=== PATIENT | male | born 1940 | race Caucasian/White ===

== ENCOUNTER 2019-11-08 11:42 | Inpatient (IN) | payer MEDICARE, OTHER ==
[~2019-11-08] VITALS: Ht 177.8 cm; Wt 62.3 kg
[2019-11-08 12:25] LABS: BASOPHILS % 0.7 % (0.0-1.0); EOSINOPHILS % 0.7 % (0.0-6.0); HEMATOCRIT 37.5 % (38.2-49.6); HEMOGLOBIN 12.8 g/dL (14.0-18.0); LYMPHOCYTES # (AUTO) 0.9 (1.0-3.2); MEAN CORPUSCULAR HEMOGLOBIN 40.9 pg (28-32); MEAN CORPUSCULAR HGB CONC 34.1 g/dL (31-35); MEAN CORPUSCULAR VOLUME 119.8 fL (81-99); MONOCYTES # (AUTO) 0.6 (0.2-0.8); MONOCYTES % 14.3 % (4.4-11.3); NEUTROPHILS # (AUTO) 2.8 (2.1-6.9); NEUTROPHILS % 62.9 % (38.7-80.0); PLATELET COUNT 223 x10e3/uL (140-360); RED BLOOD COUNT 3.13 x10e6/uL (4.3-5.7); RED CELL DISTRIBUTION WIDTH 14.1 % (11.7-14.4)
[2019-11-08 12:33] LABS: INR 1.65; PROTHROMBIN TIME 20.5 seconds (11.9-14.5)
[2019-11-08 12:34] LABS: PARTIAL THROMBOPLASTIN TIME 57.1 seconds (23.8-35.5)
[2019-11-08 12:42] LABS: ALANINE AMINOTRANSFERASE 367 IU/L (0-55); ALBUMIN 3.2 g/dL (3.5-5.0); ALBUMIN/GLOBULIN RATIO 1.1 (0.8-2.0); ALKALINE PHOSPHATASE 300 IU/L (40-150); ANION GAP 13.4 mmol/L (8-16); BLOOD UREA NITROGEN 25 mg/dL (7-26); BUN/CREATININE RATIO 22 (6-25); CALCIUM 8.7 mg/dL (8.4-10.2); CARBON DIOXIDE 24 mmol/L (22-29); CHLORIDE 106 mmol/L (98-107); CREATINE KINASE 18 IU/L (30-200); CREATININE, SERUM 1.13 mg/dL (0.72-1.25); EST GLOMERULAR FILTRATION RATE > 60 ML/MIN (60-); GLUCOSE 94 mg/dL (74-118); POTASSIUM 3.4 mmol/L (3.5-5.1); SODIUM 140 mmol/L (136-145)
--- NOTE | 2019-11-08 14:57 | NUR ---
NOTIFIED LAB OF LIPASE ADD ON.
--- NOTE | 2019-11-08 15:51 | Emergency Department Note ---
History of Present Illnes History of Present Illness Chief Complaint: General Medicine Complaints History of Present Illness This is a 79 year old [place] sent for abnormal ast/alt levels. 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 Any updates have been documented here. Past Medical History Recent Fever: No Clinical Suspicion of Infectio: No New/Unexplained Change in Ment: No Past Medical History: CVA Other Medical History: RT PARAPALEGIC Social History Smoking Cessation: Unknown if ever smoked Counseling Performed: No Alcohol Use: None Any Illegal Drug Use: No TB Exposure/Symptoms: No Physically hurt or threatened: No Family History Family history of heart diseas: No Other Any Pre-Existing Lines (PICC,: No Review of Systems Review of Systems Constitutional: Reports no symptoms EENTM: Reports no symptoms Cardiovascular: Reports no symptoms Respiratory: Reports no symptoms Gastrointestinal: Reports no symptoms Genitourinary: Reports no symptoms Musculoskeletal: Reports no symptoms Integumentary: Reports no symptoms Neurological: Reports no symptoms Psychological: Reports no symptoms Endocrine: Reports no symptoms Hematological/Lymphatic: Reports no symptoms Physical Exam Related Data Allergies: Coded Allergies: No Known Allergies (Unverified , 11/08/19) Triage Vital Signs Vital Signs Date Time Temp Pulse Resp B/P (MAP) Pulse Ox O2 Delivery O2 Flow Rate FiO2 11/08/19 11:45 98.0 63 16 161/88 96 Room Air Vital signs reviewed: Yes Physical Exam CONSTITUTIONAL Constitutional: Present well-developed, Present well-nourished HENT HENT: Present normocephalic, Present atraumatic, Present oropharynx clear/moist, Present nose normal HENT L/R: Present left ext ear normal, Present right ext ear normal EYES Eyes: Reports PERRL, Reports conjunctivae normal, Reports scleral icterus (MILD) NECK Neck: Present ROM normal PULMONARY Pulmonary: Present effort normal, Present breath sounds normal CARDIOVASCULAR Cardiovascular: Present regular rhythm, Present heart sounds normal, Present capillary refill normal, Present normal rate GASTROINTESTINAL Abdominal: Present soft, Present nontender, Present bowel sounds normal; Absent tender, Absent left CVA tenderness, Absent right CVA tenderness GENITOURINARY Genitourinary: Present exam deferred SKIN Skin: Present warm, Present dry MUSCULOSKELETAL Musculoskeletal: Present ROM normal NEUROLOGICAL Neurological: Present alert, Present oriented x 3, Present no gross motor or sensory deficits PSYCHOLOGICAL Psychological: Present mood/affect normal, Present judgement normal Results Laboratory Result Diagram: 11/08/19 1215 11/08/19 1215 Laboratory Laboratory Tests Test 11/08/19 12:15 White Blood Count 4.40 x10e3/uL (4.8-10.8) Red Blood Count 3.13 x10e6/uL (4.3-5.7) Hemoglobin 12.8 g/dL (14.0-18.0) Hematocrit 37.5 % (38.2-49.6) Mean Corpuscular Volume 119.8 fL (81-99) Mean Corpuscular Hemoglobin 40.9 pg (28-32) Mean Corpuscular Hemoglobin Concent 34.1 g/dL (31-35) Red Cell Distribution Width 14.1 % (11.7-14.4) Platelet Count 223 x10e3/uL (140-360) Neutrophils (%) (Auto) 62.9 % (38.7-80.0) Lymphocytes (%) (Auto) 20.0 % (18.0-39.1) Monocytes (%) (Auto) 14.3 % (4.4-11.3) Eosinophils (%) (Auto) 0.7 % (0.0-6.0) Basophils (%) (Auto) 0.7 % (0.0-1.0) Neutrophils # (Auto) 2.8 (2.1-6.9) Lymphocytes # (Auto) 0.9 (1.0-3.2) Monocytes # (Auto) 0.6 (0.2-0.8) Eosinophils # (Auto) 0.0 (0.0-0.4) Basophils # (Auto) 0.0 (0.0-0.1) Absolute Immature Granulocyte (auto 0.06 x10e3/uL (0-0.1) Prothrombin Time 20.5 seconds (11.9-14.5) Prothromb Time International Ratio 1.65 Activated Partial Thromboplast Time 57.1 seconds (23.8-35.5) Sodium Level 140 mmol/L (136-145) Potassium Level 3.4 mmol/L (3.5-5.1) Chloride Level 106 mmol/L (98-107) Carbon Dioxide Level 24 mmol/L (22-29) Anion Gap 13.4 mmol/L (8-16) Blood Urea Nitrogen 25 mg/dL (7-26) Creatinine 1.13 mg/dL (0.72-1.25) Estimat Glomerular Filtration Rate > 60 ML/MIN (60-) BUN/Creatinine Ratio 22 (6-25) Glucose Level 94 mg/dL (74-118) Calcium Level 8.7 mg/dL (8.4-10.2) Total Bilirubin 1.8 mg/dL (0.2-1.2) Aspartate Amino Transf (AST/SGOT) 236 IU/L (5-34) Alanine Aminotransferase (ALT/SGPT) 367 IU/L (0-55) Alkaline Phosphatase 300 IU/L (40-150) Creatine Kinase 18 IU/L (30-200) Creatine Kinase MB 0.80 ng/mL (0-5.0) Troponin I < 0.001 ng/mL (0-0.300) Total Protein 6.0 g/dL (6.5-8.1) Albumin 3.2 g/dL (3.5-5.0) Globulin 2.8 g/dL (2.3-3.5) Albumin/Globulin Ratio 1.1 (0.8-2.0) Lipase 12 U/L (8-78) Lab results reviewed: Yes Imaging Imaging results reviewed: Yes Assessment & Plan Medical Decision Making MDM CHECK CBC, CHEM, LIPASE, CT ABD/PELVIS - EVAL FOR ELEV LFT'S, CHOLECYSTITIS, HEPATITIS Reassessment Reassessment INCR LFT'S, CT SHOWS CHOLECYSTITIS AND ? COLITIS - ZOSYN/FLAGYL, ADMIT DR FUENTES, I ALSO SPOKE WITH DR SOTO Assessment & Plan Final Impression: (1) Cholecystitis Depart Disposition: ADMITTED Last Vital Signs Date Time Temp Pulse Resp B/P (MAP) Pulse Ox O2 Delivery O2 Flow Rate FiO2 11/08/19 14:59 98.7 56 16 170/69 100 Room Air SWEET,LAIRD A MD Nov 08, 2019 15:51
[2019-11-08] MEDS ORDERED: SODIUM CHLORIDE 0.9% 50ML 50 ML ONE (16:07)
[2019-11-08] MEDS ORDERED: IOPAMIDOL 370 MG/ML 200 ML INFUS..BTL INJ ONE (16:07)
--- NOTE | 2019-11-08 17:34 | Diagnostic Imaging Report ---
EXAM: CT Abdomen and Pelvis WITH contrast INDICATION: COMPARISON: None. TECHNIQUE: Abdomen and pelvis were scanned utilizing a multidetector helical scanner from the lung base to the pubic symphysis after administration of IV contrast. Coronal and sagittal reformations were obtained. Routine protocol was performed. Scan was performed when during portal venous phase. IV CONTRAST: 100 mL of Isovue 370 ORAL CONTRAST: None COMPLICATIONS: None RADIATION DOSE: Total DLP: 479.36 mGy*cm Estimated effective dose: (DLP x 0.015 x size factor) mSv CTDIvol has been reviewed. It is below the limits set by the Radiation Protocol Committee (RPC). Dose modulation, iterative reconstruction, and/or weight based adjustment of the mA/kV was utilized to reduce the radiation dose to as low as reasonably achievable. FINDINGS: LINES and TUBES: None. LOWER THORAX: Bibasilar atelectasis. HEPATOBILIARY: No focal hepatic lesions. No biliary ductal dilation. GALLBLADDER: There are multiple gallstones within the gallbladder. There is gallbladder wall thickening and enhancement with pericholecystic fluid. SPLEEN: No splenomegaly. PANCREAS: No focal masses or ductal dilatation. ADRENALS: No adrenal nodules KIDNEYS/URETERS: The bilateral kidneys appear atrophic. There is an indeterminate hyperdense exophytic lesion in the superior pole of the left kidney (series 2 image 38; series 301 image 53) which measures about 45 Hounsfield units. There are multiple bilateral renal cysts the largest in the left kidney measures approximately 4.8 cm. Additional subcentimeter hypodense lesions throughout both kidneys are too small to characterize by CT most likely represent smaller cysts. No renal stone or hydronephrosis bilaterally. GI TRACT: There is rectosigmoid colonic wall thickening with mild peripheral fat stranding. No abnormal distention, wall thickening, or evidence of bowel obstruction. Appendix is normal. PELVIC ORGANS/BLADDER: The urinary bladder is decompressed limiting optimal assessment. However no gross abnormality. The prostate gland is mildly enlarged measuring approximately 5.1 x 4.4 cm. LYMPH NODES: No lymphadenopathy. VESSELS: The abdominal aorta and its major abdomen and pelvic branches have normal enhancement with moderate atherosclerotic calcification. PERITONEUM / RETROPERITONEUM: No free air or fluid. BONES: Multilevel degenerative changes of the spine with no suspicious osteolytic or osteoblastic lesions. SOFT TISSUES: Unremarkable. IMPRESSION: 1. Multiple gallstones with gallbladder wall thickening, enhancement and pericholecystic fluid. Confirmation of findings compatible with cholecystitis. Recommend dedicated right upper quadrant ultrasound for complete assessment. 2. Indeterminate hyperdense exophytic lesion in the superior pole of the left kidney. Recommend nonemergent CT or MRI of the abdomen/pelvis (renal mass protocol) to exclude small chance of malignancy. 3. Rectosigmoid colonic wall thickening with mild peripheral fat stranding which can be suggestive of colitis. 4. Mild prostatomegaly. Signed by: Omar Hernandez MD on 11/08/2019 5:31 PM
[2019-11-08] MEDS ORDERED: HYDROCODONE/APAP 7.5MG-325MG 1 EA TAB PO NR (18:00)
[2019-11-08] MEDS ORDERED: ONDANSETRON HCL INJ 2MG/ML 2ML 2 MG/ML VIAL IV PRN (18:00)
[2019-11-08] MEDS ORDERED: MORPHINE SULFATE 2 MG/ML SYR 1ML IV PRN (18:00)
--- OUTSIDE RECORDS SUMMARY | 2019-11-08 18:07 | XMS REPORT | Continuity of Care Document ---
Author Author [facility] t Organization [facility] Address 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 Allergies, Adverse Reactions, Alerts Allergy Name Allergy Type Status Severity Reaction(s) Onset Date Inacti ve Date Treating Clinician Comments Source No Known Allergies DA Active U 2018-12-05 00:00:00 [facility] No Known Allergies DA Active U 2017-03-21 00:00:00 [facility] Medications This patient has no known medications. Procedures This patient has no known procedures. Results Test Description Test Time Test Comments Results Result Comments Source CT ABDOMEN/PELVIS W 2019-11-08 17:16:00 [place] [address] Patient Name: Emili GODFREY MR #: [id number] : 1940 Age/Sex: 79/M Req #: [id number] Adm Physician: Ordered by: ROBB CLIFFORD MD Report #: [id number] Location: ER Room/Bed: Procedure: [id number] CT/CT ABDOMEN/PELVIS W Exam Date: 11/08/19 Exam Time: 1623 REPORT STATUS: Signed EXAM: CT Abdomen and Pelvis WITH contrast INDICATION: COMPARISON: None. TECHNIQUE: Abdomen and pelvis were scanned utilizing a multidetector helical scanner from the lung base to the pubic symphysis after administration of IV contrast. Coronal and sagittal reformations were obtained. Routine protocol was performed. Scan was performed when during portal venous phase. IV CONTRAST: 100 mL of Isovue 370 ORAL CONTRAST: None COMPLICATIONS: None RADIATION DOSE: Total DLP: 479.36 mGy*cm Estimated effective dose: (DLP x 0.015 x size factor) mSv CTDIvol has been reviewed. It is below the limits set by the Radiation Protocol Committee (RPC). Dose modulation, iterative reconstruction, and/or weight based adjustment of the mA/kV was utilized to reduce the radiation dose to as low as reasonably achievable. FINDINGS: LINES and TUBES: None. LOWER THORAX: Bibasilar atelectasis. HEPATOBILIARY: No focal hepatic lesions. No biliary ductal dilation. GALLBLADDER: There are multiple gallstones within the gallbladder. There is gallbladder wall thickening and enhancement with pericholecystic fluid. SPLEEN: No splenomegaly. PANCREAS: No focal masses or ductal dilatation. ADRENALS: No adrenal nodules KIDNEYS/URETERS: The bilateral kidneys appear atrophic. There is an indeterminate hyperdense exophytic lesion in the superior pole of the left kidney (series 2 image 38; series 301 image 53) which measures about 45 Hounsfield units. There are multiple bilateral renal cysts the largest in the left kidney measures approximately 4.8 cm. Additional subcentimeter hypodense lesions throughout both kidneys are too small to characterize by CT most likely represent smaller cysts. No renal stone or hydronephrosis bilaterally. GI TRACT: There is rectosigmoid colonic wall thickening with mild peripheral fat stranding. No abnormal distention, wall thickening, or evidence of bowel obstruction. Appendix is normal. PELVIC ORGANS/BLADDER: The urinary bladder is decompressed limiting optimal assessment. However no gross abnormality. The prostate gland is mildly enlarged measuring approximately 5.1 x 4.4 cm. LYMPH NODES: No lymphadenopathy. VESSELS: The abdominal aorta and its major abdomen and pelvic branches have normal enhancement with moderate atherosclerotic calcification. PERITONEUM / RETROPERITONEUM: No free air or fluid. BONES: Multilevel degenerative changes of the spine with no suspicious osteolytic or osteoblastic lesions. SOFT TISSUES: Unremarkable. IMPRESSION: 1. Multiple gallstones with gallbladder wall thickening, enhancement and pericholecystic fluid. Confirmation of findings compatible with cholecystitis. Recommend dedicated right upper quadrant ultrasound for complete assessment. 2. Indeterminate hyperdense exophytic lesion in the superior pole of the left kidney. Recommend nonemergent CT or MRI of the abdomen/pelvis (renal mass pro tocol) to exclude small chance of malignancy. 3. Rectosigmoid colonic wall thickening with mild peripheral fat stranding which can be suggestive of colitis. 4. Mild prostatomegaly. Signed by: Sean Chavez MD on 11/08/2019 5:31 PM Dictated By: SEAN CHAVEZ MD 30 Transcribed By: PATRIA on 11/08/191730 COPY TO: ROBB CLIFFORD MD CBC W/MANUAL DIFF 2018-12-06 13:45:00 Test Item WHITE BLOOD CELL (test code = WBC) 34.3 K/mm3 4.5-12.5 H RESULT VERIFIED BY REPEAT ANALYSIS RED BLOOD CELL (test code = RBC) 7.69 mill/mm3 4.0-5.8 H HEMOGLOBIN (test code = HGB) 17.7 gram/dL 13.0-17.5 H HEMATOCRIT (test code = HCT) 59.1 % 42.0-52.0 H MEAN CELL VOLUME (test code = MCV) 76.9 fL 80-98 L MEAN CELL HGB (test code = MCH) 23.0 picogram 27.0-33.0 L MEAN CELL HGB CONCETRATION (test code = MCHC) 29.9 gram/dL 33.0-36. 0 L RED CELL DISTRIBUTION WIDTH (test code = RDW) 19.9 % 11.6-16. 2 H RED CELL DISTRIBUTION WIDTH SD (test code = RDW-SD) 47.4 fL 37 .0-51.0 N PLATELET COUNT (test code = PLT) 1251 K/mm3 150-450 H RESULT VERIFIED BY REPEAT ANALYSIS Has "Path Review" been performed on patient's currentadmission? If not, please order "Path Review" for the followingcriteria:1/ WBC count over 40,000/mm3 or below 2,000/mm32/ Platelet counts over 1,000,000/mm3, or below 10,000/mm3, or with abnormal morphology.3/ Abnormal red cell morphology or inclusions which are severe (> 3+) , widespread, or difficult to classify.4/ Abnormal white blood cell morphology: Blasts present in peripheral blood of any patient as a new finding. Abnormal cells suspected of being blasts. Patients with large numbers of immature cells in peripheral blood. Unusual cells or cells not easily classified in peripheral blood.5/ Any smear in which the technologist is uncertain of the classification or the disease. MEAN PLATELET VOLUME (test code = MPV) 8.8 fL 6.7-11.0 N IMMATURE GRANULOCYTE % (test code = IG%) 2.3 % 0.0-5.0 N NUCLEATED RBC % (test code = NRBC%) 0.1 % 0-0 H NEUTROPHIL # (test code = NT#) 29.72 K/mm3 1.8-7.7 H IMMATURE GRANULOCYTE # (test code = IG#) 0.79 x10 3/uL 0-0.03 H LYMPHOCYTE # (test code = LY#) 1.77 K/mm3 1.0-5.0 N MONOCYTE # (test code = MO#) 1.20 K/mm3 0-0.8 H EOSINOPHIL # (test code = EO#) 0.65 K/mm3 0.0-0.5 H BASOPHIL # (test code = BA#) 0.21 K/mm3 0.0-0.2 H NUCLEATED RBC # (test code = NRBC#) 0.04 K/mm3 0.0-0.1 N MANUAL DIFF REQUIRED (test code = MDIFF) YES STAIN ACCEPTABILITY (test code = STN ACCEPTABLE) STAIN ACCEPTABLE TOTAL CELLS COUNTED (test code = TCC) 120 #CELLS SEGMENTED NEUTROPHILS (test code = SEG) 86.7 % 39-69 H BAND NEUTROPHIL (test code = BAND) 0 % 0-10 N LYMPHOCYTE (test code = LYMPH) 2.5 % 25-55 L REACTIVE LYMPH (test code = RELYMPH) 0 % MONOCYTE (test code = MON) 10.0 % 0-10 N EOSINOPHIL (test code = EOS) 0.8 % 0.0-5.0 N BASOPHIL (test code = BASO) 0 % 0-1.0 N METAMYELOCYTE (test code = META) 0 % 0-0 N MYELOCYTE (test code = MYELO) 0 % 0.0-0.0 N PROMYELOCYTE (test code = PROM) 0 % 0-0 N POLYCHROMASIA (test code = POLC) 1+ POIKILOCYTOSIS (test code = POIK) 1+ ANISOCYTOSIS (test code = ANISO) 1+ MICROCYTOSIS (test code = MICR) 1+ PLATELET ESTIMATE (test code = PLTEST) INCREASED PLATELET MORPHOLOGY (test code = PLTMORPH) SIZE VARIABLE IMMATURE FORMS (test code = IMMAT) 0 % 0-0 N PATHOLOGISTS [id number] 13:45:00* Test Item Value Reference Range Interpretation Comments PATHOLOGISTS FINDINGS (test code = PATH) PATH NOTES Reviewed by Pathologist,SRUTHI CARRILLO M.D.12/06/18The patient has a previous diagnosis from a bone marrowbiopsy ( dec 2013 S- [id number]) of markedly hypercellularmarrow with 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 LACTIC [id number] 18:36:00* Test Item Value Reference Range Interpretation Comments LACTIC ACID (test code = LACT) 1.8 mmol/L 0.4-1.9 N - XR CHEST 1 [id number] 17:59:00 FAX: Deidre Madrigal MD [phone] [place]: B St: REG Name: Emili RAMÍREZ [facility] : [birth year] Age/S: 78/M [address] [facility] Unit #: [id number] Loc: [place] [address] Phys: Deidre Madrigal MD Acct: [id number] Dis Date: Status: REG ER PHONE #: [phone] Exam Date: 12/05/2018 1740 FAX #: [phone] Reason: COUGH EXAMS: CPT CODE: [id number] XR CHEST 1 V [id number] REASON FOR EXAM: COUGH Exam Order Date: 12/05/2018 5:27 PM Ordering M.D.: Deidre Madrigal MD PROCEDURE: - XR CHEST 1 V COMPARISON: Frontal chest x-ray August 11, 2017 FINDINGS: The lungs are clear other than mild subsegmental atelectasis in the left lung base. T here is no pleural effusion or pneumothorax. Pulmonary vascularity is with in normal limits. Cardiomediastinal silhouette is normal in size f or technique. The mediastinal contours are within normal limits. Degenerative changes are present in the spine. The visualized upper abdomen is within normal limits. IMPRESSION: No acute cardiopulmonary process. at 1759 Reported and signed by: Carlo Kaplan MD CC: Deidre Madrigal MD Technologist: Dixie Dempsey(R); Emily Dempsey(R) Trn scrd Date/Time/By: 12/05/2018 (041) : By: [email or web address] Orig Print D/T: S : 12/05/2018 (326) PAGE 1 Signed Report CBC W/MANUAL [id number] 16:36:00* Test Item Value Reference Range Interpretation Comments WHITE BLOOD CELL (test code = WBC) 34.3 K/mm3 4.5-12.5 H RESULT VERIFIED BY REPEAT ANALYSIS RED BLOOD CELL (test code = RBC) 7.69 mill/mm3 4.0-5.8 H HEMOGLOBIN (test code = HGB) 17.7 gram/dL 13.0-17.5 H HEMATOCRIT (test code = HCT) 59.1 % 42.0-52.0 H MEAN CELL VOLUME (test code = MCV) 76.9 fL 80-98 L MEAN CELL HGB (test code = MCH) 23.0 picogram 27.0-33.0 L MEAN CELL HGB CONCETRATION (test code = MCHC) 29.9 gram/dL 33.0-36. 0 L RED CELL DISTRIBUTION WIDTH (test code = RDW) 19.9 % 11.6-16. 2 H RED CELL DISTRIBUTION WIDTH SD (test code = RDW-SD) 47.4 fL 37 .0-51.0 N PLATELET COUNT (test code = PLT) 1251 K/mm3 150-450 H RESULT VERIFIED BY REPEAT ANALYSIS Has "Path Review" been performed on patient's currentadmission? If not, please order "Path Review" for the followingcriteria:1/ WBC count over 40,000/mm3 or below 2,000/mm32/ Platelet counts over 1,000,000/mm3, or below 10,000/mm3, or with abnormal morphology.3/ Abnormal red cell morphology or inclusions which are severe (> 3+) , widespread, or difficult to classify.4/ Abnormal white blood cell morphology: Blasts present in peripheral blood of any patient as a new finding. Abnormal cells suspected of being blasts. Patients with large numbers of immature cells in peripheral blood. Unusual cells or cells not easily classified in peripheral blood.5/ Any smear in which the technologist is uncertain of the classification or the disease. MEAN PLATELET VOLUME (test code = MPV) 8.8 fL 6.7-11.0 N IMMATURE GRANULOCYTE % (test code = IG%) 2.3 % 0.0-5.0 N NUCLEATED RBC % (test code = NRBC%) 0.1 % 0-0 H NEUTROPHIL # (test code = NT#) 29.72 K/mm3 1.8-7.7 H IMMATURE GRANULOCYTE # (test code = IG#) 0.79 x10 3/uL 0-0.03 H LYMPHOCYTE # (test code = LY#) 1.77 K/mm3 1.0-5.0 N MONOCYTE # (test code = MO#) 1.20 K/mm3 0-0.8 H EOSINOPHIL # (test code = EO#) 0.65 K/mm3 0.0-0.5 H BASOPHIL # (test code = BA#) 0.21 K/mm3 0.0-0.2 H NUCLEATED RBC # (test code = NRBC#) 0.04 K/mm3 0.0-0.1 N MANUAL DIFF REQUIRED (test code = MDIFF) YES STAIN ACCEPTABILITY (test code = STN ACCEPTABLE) STAIN ACCEPTABLE TOTAL CELLS COUNTED (test code = TCC) 120 #CELLS SEGMENTED NEUTROPHILS (test code = SEG) 86.7 % 39-69 H BAND NEUTROPHIL (test code = BAND) 0 % 0-10 N LYMPHOCYTE (test code = LYMPH) 2.5 % 25-55 L REACTIVE LYMPH (test code = RELYMPH) 0 % MONOCYTE (test code = MON) 10.0 % 0-10 N EOSINOPHIL (test code = EOS) 0.8 % 0.0-5.0 N BASOPHIL (test code = BASO) 0 % 0-1.0 N METAMYELOCYTE (test code = META) 0 % 0-0 N MYELOCYTE (test code = MYELO) 0 % 0.0-0.0 N PROMYELOCYTE (test code = PROM) 0 % 0-0 N POLYCHROMASIA (test code = POLC) 1+ POIKILOCYTOSIS (test code = POIK) 1+ ANISOCYTOSIS (test code = ANISO) 1+ MICROCYTOSIS (test code = MICR) 1+ PLATELET ESTIMATE (test code = PLTEST) INCREASED PLATELET MORPHOLOGY (test code = PLTMORPH) SIZE VARIABLE IMMATURE FORMS (test code = IMMAT) 0 % 0-0 N PATHOLOGISTS [id number] 16:36:00* Test Item Value Reference Range Interpretation Comments PATHOLOGISTS FINDINGS (test code = PATH) PATH NOTES PROTHROMBIN [id number] 16:15:00* Test Item Value Reference Range Interpretation Comments PROTHROMBIN TIME PATIENT (test code = PTP) 14.4 seconds 9.0-14.0 H INTERNATIONAL NORMAL RATIO (test code = INR) 1.2 0.8-1.2 N The therapeutic range for oral anticoagulant therapy formost indications is an international normalized ratio (INR)of between 2.0 and 3.0. The recommended therapeutic INRrange for various clinical situations is listed below: Clinical Situation INR range Pulmonary e mbolism treatment (2.0-3.0)Venous thrombosis treatmentVenous thrombosis prophylaxis (high risk surgery)Prevention of systemic embolism from: Acute myocardial infarction Valvular heart disease Atrial fibrillation Mechanical prosthetic heart valves (2.5-3.5) IS PATIENT ON ANTICOAGULANTS? NTHROMBOPLASTIN TIME [id number] 16:15:00* Test Item Value Reference Range Interpretation Comments THROMBOPLASTIN TIME PARTIAL (test code = PTT) 59.6 seconds 25.0-36. 5 H IS PATIENT ON ANTICOAGULANTS? NBASIC METABOLIC [id number] 15:55:00* Test Item Value Reference Range Interpretation Comments SODIUM (test code = NA) 140 mmol/L 136-145 N POTASSIUM (test code = K) 4.5 mmol/L 3.5-5.1 N CHLORIDE (test code = CL) 108.0 mmol/L 98-107 H CARBON DIOXIDE (test code = CO2) 23.0 mmol/L 21-32 N ANION GAP (test code = GAP) 13.5 10-20 N GLUCOSE (test code = GLU) 99 mg/dL 74-106 N BLOOD UREA NITROGEN (test code = BUN) 17 mg/dL 7-18 N GLOMERULAR FILTRATION RATE (test code = GFR) > 60 mL/min >=60 Estimated GFR by using Modified MDRD formula.Chronic kidney disease is defined as either kidney damageor GFR <60 mL/min/1.73 m2 for >3 months. CREATININE (test code = CREAT) 1.00 mg/dL 0.7-1.3 N BUN/CREATININE RATIO (test code = BUN/CREA) 17.0 10-20 N CALCIUM (test code = CA) 9.3 mg/dL 8.5-10.1 N BASIC METABOLIC [id number] 15:52:00* Test Item Value Reference Range Interpretation Comments SODIUM (test code = NA) 140 mmol/L 136-145 N POTASSIUM (test code = K) 4.5 mmol/L 3.5-5.1 N CHLORIDE (test code = CL) 108.0 mmol/L 98-107 H CARBON DIOXIDE (test code = CO2) mmol/L 21-32 ANION GAP (test code = GAP) 10-20 GLUCOSE (test code = GLU) mg/dL 74-106 BLOOD UREA NITROGEN (test code = BUN) mg/dL 7-18 GLOMERULAR FILTRATION RATE (test code = GFR) mL/min >=60 CREATININE (test code = CREAT) mg/dL 0.7-1.3 BUN/CREATININE RATIO (test code = BUN/CREA) 10-20 CALCIUM (test code = CA) mg/dL 8.5-10.1 CBC W/MANUAL [id number] 15:50:00* Test Item Value Reference Range Interpretation Comments WHITE BLOOD CELL (test code = WBC) 34.3 K/mm3 4.5-12.5 H RESULT VERIFIED BY REPEAT ANALYSIS RED BLOOD CELL (test code = RBC) 7.69 mill/mm3 4.0-5.8 H HEMOGLOBIN (test code = HGB) 17.7 gram/dL 13.0-17.5 H HEMATOCRIT (test code = HCT) 59.1 % 42.0-52.0 H MEAN CELL VOLUME (test code = MCV) 76.9 fL 80-98 L MEAN CELL HGB (test code = MCH) 23.0 picogram 27.0-33.0 L MEAN CELL HGB CONCETRATION (test code = MCHC) 29.9 gram/dL 33.0-36. 0 L RED CELL DISTRIBUTION WIDTH (test code = RDW) 19.9 % 11.6-16. 2 H RED CELL DISTRIBUTION WIDTH SD (test code = RDW-SD) 47.4 fL 37 .0-51.0 N PLATELET COUNT (test code = PLT) 1251 K/mm3 150-450 H RESULT VERIFIED BY REPEAT ANALYSIS Has "Path Review" been performed on patient's currentadmission? If not, please order "Path Review" for the followingcriteria:1/ WBC count over 40,000/mm3 or below 2,000/mm32/ Platelet counts over 1,000,000/mm3, or below 10,000/mm3, or with abnormal morphology.3/ Abnormal red cell morphology or inclusions which are severe (> 3+) , widespread, or difficult to classify.4/ Abnormal white blood cell morphology: Blasts present in peripheral blood of any patient as a new finding. Abnormal cells suspected of being blasts. Patients with large numbers of immature cells in peripheral blood. Unusual cells or cells not easily classified in peripheral blood.5/ Any smear in which the technologist is uncertain of the classification or the disease. MEAN PLATELET VOLUME (test code = MPV) 8.8 fL 6.7-11.0 N IMMATURE GRANULOCYTE % (test code = IG%) 2.3 % 0.0-5.0 N NUCLEATED RBC % (test code = NRBC%) 0.1 % 0-0 H NEUTROPHIL # (test code = NT#) 29.72 K/mm3 1.8-7.7 H IMMATURE GRANULOCYTE # (test code = IG#) 0.79 x10 3/uL 0-0.03 H LYMPHOCYTE # (test code = LY#) 1.77 K/mm3 1.0-5.0 N MONOCYTE # (test code = MO#) 1.20 K/mm3 0-0.8 H EOSINOPHIL # (test code = EO#) 0.65 K/mm3 0.0-0.5 H BASOPHIL # (test code = BA#) 0.21 K/mm3 0.0-0.2 H NUCLEATED RBC # (test code = NRBC#) 0.04 K/mm3 0.0-0.1 N MANUAL DIFF REQUIRED (test code = MDIFF) YES STAIN ACCEPTABILITY (test code = STN ACCEPTABLE) TOTAL CELLS COUNTED (test code = TCC) #CELLS SEGMENTED NEUTROPHILS (test code = SEG) % 39-69 LYMPHOCYTE (test code = LYMPH) % 25-55 MONOCYTE (test code = MON) % 0-10 EOSINOPHIL (test code = EOS) % 0.0-5.0 CABOT RINGS (test code = CAB) MORPHOLOGY COMMENT (test code = MOC) PLATELET ESTIMATE (test code = PLTEST) PLATELET MORPHOLOGY (test code = PLTMORPH) CBC W/MANUAL [id number] 15:50:00* Test Item Value Reference Range Interpretation Comments WHITE BLOOD CELL (test code = WBC) 34.3 K/mm3 4.5-12.5 H RESULT VERIFIED BY REPEAT ANALYSIS RED BLOOD CELL (test code = RBC) 7.69 mill/mm3 4.0-5.8 H HEMOGLOBIN (test code = HGB) 17.7 gram/dL 13.0-17.5 H HEMATOCRIT (test code = HCT) 59.1 % 42.0-52.0 H MEAN CELL VOLUME (test code = MCV) 76.9 fL 80-98 L MEAN CELL HGB (test code = MCH) 23.0 picogram 27.0-33.0 L MEAN CELL HGB CONCETRATION (test code = MCHC) 29.9 gram/dL 33.0-36. 0 L RED CELL DISTRIBUTION WIDTH (test code = RDW) 19.9 % 11.6-16. 2 H RED CELL DISTRIBUTION WIDTH SD (test code = RDW-SD) 47.4 fL 37 .0-51.0 N PLATELET COUNT (test code = PLT) 1251 K/mm3 150-450 H RESULT VERIFIED BY REPEAT ANALYSIS Has "Path Review" been performed on patient's currentadmission? If not, please order "Path Review" for the followingcriteria:1/ WBC count over 40,000/mm3 or below 2,000/mm32/ Platelet counts over 1,000,000/mm3, or below 10,000/mm3, or with abnormal morphology.3/ Abnormal red cell morphology or inclusions which are severe (> 3+) , widespread, or difficult to classify.4/ Abnormal white blood cell morphology: Blasts present in peripheral blood of any patient as a new finding. Abnormal cells suspected of being blasts. Patients with large numbers of immature cells in peripheral blood. Unusual cells or cells not easily classified in peripheral blood.5/ Any smear in which the technologist is uncertain of the classification or the disease. MEAN PLATELET VOLUME (test code = MPV) 8.8 fL 6.7-11.0 N IMMATURE GRANULOCYTE % (test code = IG%) 2.3 % 0.0-5.0 N NUCLEATED RBC % (test code = NRBC%) 0.1 % 0-0 H NEUTROPHIL # (test code = NT#) 29.72 K/mm3 1.8-7.7 H IMMATURE GRANULOCYTE # (test code = IG#) 0.79 x10 3/uL 0-0.03 H LYMPHOCYTE # (test code = LY#) 1.77 K/mm3 1.0-5.0 N MONOCYTE # (test code = MO#) 1.20 K/mm3 0-0.8 H EOSINOPHIL # (test code = EO#) 0.65 K/mm3 0.0-0.5 H BASOPHIL # (test code = BA#) 0.21 K/mm3 0.0-0.2 H NUCLEATED RBC # (test code = NRBC#) 0.04 K/mm3 0.0-0.1 N MANUAL DIFF REQUIRED (test code = MDIFF) YES STAIN ACCEPTABILITY (test code = STN ACCEPTABLE) TOTAL CELLS COUNTED (test code = TCC) #CELLS SEGMENTED NEUTROPHILS (test code = SEG) % 39-69 LYMPHOCYTE (test code = LYMPH) % 25-55 MONOCYTE (test code = MON) % 0-10 MORPHOLOGY COMMENT (test code = MOC) PLATELET ESTIMATE (test code = PLTEST) PLATELET MORPHOLOGY (test code = PLTMORPH) PATHOLOGISTS [id number] 15:50:00* Test Item Value Reference Range Interpretation Comments PATHOLOGISTS FINDINGS (test code = PATH) PATH NOTES CBC W/MANUAL [id number] 15:50:00* Test Item Value Reference Range Interpretation Comments WHITE BLOOD CELL (test code = WBC) 34.3 K/mm3 4.5-12.5 H RESULT VERIFIED BY REPEAT ANALYSIS RED BLOOD CELL (test code = RBC) 7.69 mill/mm3 4.0-5.8 H HEMOGLOBIN (test code = HGB) 17.7 gram/dL 13.0-17.5 H HEMATOCRIT (test code = HCT) 59.1 % 42.0-52.0 H MEAN CELL VOLUME (test code = MCV) 76.9 fL 80-98 L MEAN CELL HGB (test code = MCH) 23.0 picogram 27.0-33.0 L MEAN CELL HGB CONCETRATION (test code = MCHC) 29.9 gram/dL 33.0-36. 0 L RED CELL DISTRIBUTION WIDTH (test code = RDW) 19.9 % 11.6-16. 2 H RED CELL DISTRIBUTION WIDTH SD (test code = RDW-SD) 47.4 fL 37 .0-51.0 N PLATELET COUNT (test code = PLT) 1251 K/mm3 150-450 H RESULT VERIFIED BY REPEAT ANALYSIS Has "Path Review" been performed on patient's currentadmission? If not, please order "Path Review" for the followingcriteria:1/ WBC count over 40,000/mm3 or below 2,000/mm32/ Platelet counts over 1,000,000/mm3, or below 10,000/mm3, or with abnormal morphology.3/ Abnormal red cell morphology or inclusions which are severe (> 3+) , widespread, or difficult to classify.4/ Abnormal white blood cell morphology: Blasts present in peripheral blood of any patient as a new finding. Abnormal cells suspected of being blasts. Patients with large numbers of immature cells in peripheral blood. Unusual cells or cells not easily classified in peripheral blood.5/ Any smear in which the technologist is uncertain of the classification or the disease. MEAN PLATELET VOLUME (test code = MPV) 8.8 fL 6.7-11.0 N IMMATURE GRANULOCYTE % (test code = IG%) 2.3 % 0.0-5.0 N NUCLEATED RBC % (test code = NRBC%) 0.1 % 0-0 H NEUTROPHIL # (test code = NT#) 29.72 K/mm3 1.8-7.7 H IMMATURE GRANULOCYTE # (test code = IG#) 0.79 x10 3/uL 0-0.03 H LYMPHOCYTE # (test code = LY#) 1.77 K/mm3 1.0-5.0 N MONOCYTE # (test code = MO#) 1.20 K/mm3 0-0.8 H EOSINOPHIL # (test code = EO#) 0.65 K/mm3 0.0-0.5 H BASOPHIL # (test code = BA#) 0.21 K/mm3 0.0-0.2 H NUCLEATED RBC # (test code = NRBC#) 0.04 K/mm3 0.0-0.1 N MANUAL DIFF REQUIRED (test code = MDIFF) YES STAIN ACCEPTABILITY (test code = STN ACCEPTABLE) TOTAL CELLS COUNTED (test code = TCC) #CELLS SEGMENTED NEUTROPHILS (test code = SEG) % 39-69 LYMPHOCYTE (test code = LYMPH) % 25-55 MONOCYTE (test code = MON) % 0-10 EOSINOPHIL (test code = EOS) % 0.0-5.0 CABOT RINGS (test code = CAB) MORPHOLOGY COMMENT (test code = MOC) PLATELET ESTIMATE (test code = PLTEST) PLATELET MORPHOLOGY (test code = PLTMORPH)
[2019-11-08] MEDS: SODIUM CHLORIDE 0.9% 1000ML 1,000 ML IV SCH ×2 (18:28→21:15)
[2019-11-08] MEDS: PIPER-TAZ 3.375 GM 50 ML IV SCH (18:28)
[2019-11-08] MEDS: METRONIDAZOLE 500MG/NS 100ML IV SCH ×2 (18:29→23:22)
[2019-11-08] MEDS ORDERED: GADOBENATE DIMEGLUMINE 0 ML IV ONE (19:22)
[2019-11-08] MEDS ORDERED: ACETAMINOPHEN 325 MG TAB PO PRN (20:15)
--- NOTE | 2019-11-08 20:35 | NUR ---
RECEIVED REPORT FROM LEEANNE CALLEJAS NURSE. PATIENT ARRIVED VIA STRETCHER FROM [facility]. PATIENT IS NONVERBAL AND SHAKES HIS HEAD OR SAYS NO. CALL LIGHT WITHIN REACH. PATIENT'S DIAPER WAS CHANGED AFTER HE WAS TRANSFERRED TO THE BED
[2019-11-08 20:45] VITALS: BP 166/71
[2019-11-08 20:50] VITALS: BP 166/71
[2019-11-08] MEDS: HYDRALAZINE HCL 20 MG/ML VIAL IV PRN (21:19)
--- NOTE | 2019-11-08 21:27 | Diagnostic Imaging Report ---
EXAM: MRI MRCP WO DATE: 11/08/2019 8:17 PM INDICATION: Abdominal pain. COMPARISON: Same day CT of the abdomen/pelvis. TECHNIQUE: Multi sequential multiplanar abdominal MRI images were obtained, utilizing MRCP protocol. FINDINGS: Trace bilateral pleural effusions. Very limited study due to motion artifact. No definite T2 hyperintense hepatic lesion visualized. No intrahepatic biliary dilatation. Common bile duct is within normal limits, measuring up to 5 mm. No filling defects visualized. Gallbladder is not distended, containing small gallstones. There is gallbladder wall thickening and mild pericholecystic edema. Spleen, pancreas, and adrenal glands are grossly unremarkable. No pancreatic ductal dilatation. Bilateral renal cysts, the largest is an exophytic cyst from left midpole measuring 5.3 cm. Full evaluation is limited without intravenous contrast. No hydronephrosis. Visualized bowel loops are grossly unremarkable. No evidence of bowel obstruction. IMPRESSION: Limited study as above. Cholelithiasis with mild gallbladder wall thickening and pericholecystic edema. However the gallbladder is not distended. Findings are suspicious for acute cholecystitis in the appropriate clinical context. No biliary dilatation or choledocholithiasis. Signed by: Dr. Jaime Amato MD on 11/08/2019 9:23 PM
[2019-11-08 23:25] VITALS: BP 153/98
[2019-11-09] MEDS: PIPER-TAZ 3.375 GM 50 ML IV SCH ×4 (00:20→16:38)
[2019-11-09] MEDS ORDERED: FAMOTIDINE20 MG PO (02:23)
[2019-11-09] MEDS ORDERED: KEPPRA500 MG PO ×2 (02:23)
[2019-11-09] MEDS ORDERED: MIRTAZAPINE7.5 MG PO (02:23)
[2019-11-09] MEDS ORDERED: ATORVASTATIN CA20 MG PO (02:23)
[2019-11-09] MEDS ORDERED: DOCUSATE SODIU100 MG PO (02:23)
[2019-11-09] MEDS ORDERED: AGRYLIN0.5 M1 PO (02:23)
[2019-11-09] MEDS ORDERED: XARELTO10 MG (02:23)
[2019-11-09] MEDS ORDERED: HYDREA500 MG (02:23)
[2019-11-09] MEDS ORDERED: ASPIRIN ENTERI325 MG PO (02:23)
[2019-11-09] MEDS ORDERED: MULTIVITAMINS1 EAC7 (02:23)
[2019-11-09] MEDS ORDERED: OYSTER SHELL 51 EACH (02:23)
[2019-11-09] MEDS ORDERED: ARTIFICIAL TEAR15 M3 OP (02:23)
[2019-11-09] MEDS ORDERED: LEVOTHYROXINE100 MC1 PO (02:23)
[2019-11-09] MEDS ORDERED: PROCARDIA XL30 MG (02:23)
[2019-11-09] MEDS ORDERED: CLOPIDOGREL75 MG PO (02:23)
[2019-11-09 04:20] VITALS: BP 139/63
[2019-11-09] MEDS: METRONIDAZOLE 500MG/NS 100ML IV SCH (05:17)
[2019-11-09 05:19] LABS: BASOPHILS % 0.8 % (0.0-1.0); EOSINOPHILS # (AUTO) 0.1 (0.0-0.4); EOSINOPHILS % 1.3 % (0.0-6.0); HEMATOCRIT 34.5 % (38.2-49.6); HEMOGLOBIN 11.9 g/dL (14.0-18.0); LYMPHOCYTES # (AUTO) 0.8 (1.0-3.2); LYMPHOCYTES % 19.9 % (18.0-39.1); MEAN CORPUSCULAR HEMOGLOBIN 40.8 pg (28-32); MEAN CORPUSCULAR HGB CONC 34.5 g/dL (31-35); MEAN CORPUSCULAR VOLUME 118.2 fL (81-99); MONOCYTES # (AUTO) 0.5 (0.2-0.8); MONOCYTES % 13.4 % (4.4-11.3); NEUTROPHILS # (AUTO) 2.4 (2.1-6.9); NEUTROPHILS % 62.8 % (38.7-80.0); PLATELET COUNT 210 x10e3/uL (140-360); RED BLOOD COUNT 2.92 x10e6/uL (4.3-5.7); RED CELL DISTRIBUTION WIDTH 13.8 % (11.7-14.4)
[2019-11-09 05:51] LABS: ALANINE AMINOTRANSFERASE 222 IU/L (0-55); ALBUMIN 2.5 g/dL (3.5-5.0); ALKALINE PHOSPHATASE 226 IU/L (40-150); AMYLASE 37 U/L (25-125); ANION GAP 11.9 mmol/L (8-16); BLOOD UREA NITROGEN 17 mg/dL (7-26); BUN/CREATININE RATIO 21 (6-25); CALCIUM 7.9 mg/dL (8.4-10.2); CARBON DIOXIDE 19 mmol/L (22-29); CHLORIDE 112 mmol/L (98-107); EST GLOMERULAR FILTRATION RATE > 60 ML/MIN (60-); GLUCOSE 84 mg/dL (74-118); LIPASE 9 U/L (8-78); SODIUM 140 mmol/L (136-145)
[2019-11-09 06:06] LABS: POTASSIUM 2.9 mmol/L (3.5-5.1)
--- NOTE | 2019-11-09 06:20 | NUR ---
CALLED DR. FUENTES OFFICE AND TALKED TO JOSEFINA SHAH ABOUT THE PATIENT HAVING A POTASSIUM OF 2.9. ALYSSA ORDERED 20 MEQ IV X 2 DOSES OF POTASSIUM.
[2019-11-09] MEDS ORDERED: POTASSIUM CHLORIDE 20MEQ/100ML 100 ML IV ONE ×2 (06:30→08:30)
--- NOTE | 2019-11-09 07:10 | NUR ---
GAVE BEDSIDE SHIFT REPORT TO ONCOMING NURSE. CALL LIGHT WITHIN REACH. PATIENT IN BED. HOURLY ROUNDING PERFORMED.
[2019-11-09 07:52] LABS: INR 1.3; PROTHROMBIN TIME 16.9 seconds (11.9-14.5)
[2019-11-09 07:53] LABS: PARTIAL THROMBOPLASTIN TIME 51.8 seconds (23.8-35.5)
[2019-11-09 08:00] VITALS: BP 159/74
[2019-11-09 08:27] VITALS: BP 159/74
[2019-11-09] MEDS: ANAGRELIDE HCL 0.5 MG CAP PO SCH ×2 (09:00→09:57)
[2019-11-09] MEDS ORDERED: FAMOTIDINE 20 MG/2 ML VIAL IV SCH (09:00)
[2019-11-09] MEDS: FAMOTIDINE 20 MG TAB PO SCH (09:00)
[2019-11-09] MEDS ORDERED: LEVOTHYROXINE50 MCG PO (09:02)
[2019-11-09] MEDS: MULTIVITAMINS/MINERALS TAB PO SCH (09:47)
[2019-11-09] MEDS: ASPIRIN 325 MG TAB EC PO SCH (09:47)
[2019-11-09] MEDS: LEVETIRACETAM 500 MG TAB PO SCH ×2 (09:47→20:39)
[2019-11-09] MEDS: DOCUSATE SODIUM 100 MG CAP PO SCH (09:47)
[2019-11-09] MEDS: OYST-CAL-D 500MG TABLET PO SCH ×2 (09:48→16:38)
[2019-11-09] MEDS: NIFEDIPINE CR 30 MG TAB PO SCH (09:48)
[2019-11-09] MEDS: HYDROXYUREA 500 MG CAPSULE PO SCH ×2 (09:56→17:15)
[2019-11-09] MEDS ORDERED: MORPHINE SULFATE 2 MG/ML SYR 1ML IV PRN (10:00)
[2019-11-09 12:00] VITALS: BP 140/88
--- NOTE | 2019-11-09 19:10 | NUR ---
RECEIVED REPORT FROM PREVIOUS NURSE. PATIENT IN BED. CALL LIGHT WITHIN REACH.
[2019-11-09 20:10] VITALS: BP 146/57
[2019-11-09] MEDS: MIRTAZAPINE 15 MG TAB PO SCH (20:39)
[2019-11-09] MEDS: ATORVASTATIN 20 MG TAB PO SCH (20:39)
[2019-11-09 23:50] VITALS: BP 129/86
[2019-11-10] VITALS (7 sets, daily range): BP systolic 120–149; BP diastolic 56–93
[2019-11-10] MEDS: PIPER-TAZ 3.375 GM 50 ML IV SCH ×4 (00:28→21:00)
[2019-11-10 05:05] LABS: BASOPHILS % 0.5 % (0.0-1.0); EOSINOPHILS # (AUTO) 0.1 (0.0-0.4); EOSINOPHILS % 2.4 % (0.0-6.0); HEMATOCRIT 35.7 % (38.2-49.6); HEMOGLOBIN 12.2 g/dL (14.0-18.0); LYMPHOCYTES % 27.2 % (18.0-39.1); MEAN CORPUSCULAR HEMOGLOBIN 39.9 pg (28-32); MEAN CORPUSCULAR HGB CONC 34.2 g/dL (31-35); MEAN CORPUSCULAR VOLUME 116.7 fL (81-99); MONOCYTES # (AUTO) 0.3 (0.2-0.8); MONOCYTES % 8.9 % (4.4-11.3); NEUTROPHILS # (AUTO) 2.3 (2.1-6.9); PLATELET COUNT 247 x10e3/uL (140-360); RED BLOOD COUNT 3.06 x10e6/uL (4.3-5.7); RED CELL DISTRIBUTION WIDTH 13.8 % (11.7-14.4)
[2019-11-10 05:41] LABS: ALANINE AMINOTRANSFERASE 161 IU/L (0-55); ALBUMIN 2.7 g/dL (3.5-5.0); ALBUMIN/GLOBULIN RATIO 1.1 (0.8-2.0); ALKALINE PHOSPHATASE 187 IU/L (40-150); ANION GAP 11.3 mmol/L (8-16); BLOOD UREA NITROGEN 13 mg/dL (7-26); BUN/CREATININE RATIO 16 (6-25); CALCIUM 8.5 mg/dL (8.4-10.2); CARBON DIOXIDE 19 mmol/L (22-29); CHLORIDE 112 mmol/L (98-107); CREATININE, SERUM 0.79 mg/dL (0.72-1.25); EST GLOMERULAR FILTRATION RATE > 60 ML/MIN (60-); GLUCOSE 77 mg/dL (74-118); POTASSIUM 3.3 mmol/L (3.5-5.1); SODIUM 139 mmol/L (136-145)
[2019-11-10 05:45] LABS: THYROID STIMULATING HORMONE 7.781 uIU/mL (0.350-4.940)
[2019-11-10] MEDS ORDERED: LEVOTHYROXINE SODIUM 75 MCG TAB PO SCH (06:00)
--- NOTE | 2019-11-10 07:02 | NUR ---
GAVE BEDSIDE SHIFT REPORT TO ONCOMING NURSE. CALL LIGHT WITHIN REACH. PATIENT IN BED. HOURLY ROUNDING PERFORMED.
--- NOTE | 2019-11-10 07:39 | NUR ---
ASSUMED CARE AT APPROXIMATELY 0710. PATIENT AWAKE AND ALERT. ACYANOTIC. RESTING IN BED. NO DISTRESS NOTED. CALL LIGHT IN REACH. SIDE RAILS UP X2. BED LOW AND LOCKED.
--- NOTE | 2019-11-10 07:57 | Consultation ---
DATE OF CONSULTATION: 11/09/2019 HISTORY OF PRESENT ILLNESS: The patient is an 79-year-old male transferred to the intermediate where he was found to have abnormal liver function tests. The patient came to the emergency room, evaluation revealed gallstones with findings suggestive of acute cholecystitis. He also had MRCP that did not reveal any choledocholithiasis. The patient has a history of aphasia secondary to previous cerebrovascular accident and is unable to give any history. There have been no symptoms of jaundice per the chart. PAST MEDICAL HISTORY: Significant for previous cerebrovascular accident with aphasia, history of hypothyroidism, hyperlipidemia, anxiety disorder, hypertension, history of previous DVT of the right leg, history of polycythemia vera, myeloproliferative disease per the chart. ALLERGIES: HE HAS NO KNOWN ALLERGIES. CURRENT MEDICATIONS: At the intermediate are listed in the chart. He takes: 1. Plavix. 2. Agrylin. 3. Aspirin. 4. Lipitor. 5. Calcium. 6. Colace. 7. Pepcid. 8. Hydrea. 9. Keppra. 10. Levothyroxine. 11. Mirtazapine. 12. Vitamins. 13. Procardia. 14. Xarelto. PREVIOUS SURGERIES: Not available. FAMILY HISTORY: Noncontributory. SOCIAL HISTORY: Cannot be obtained. No known history of alcohol use or cigarette smoking. REVIEW OF SYSTEMS: Cannot be obtained. PHYSICAL EXAMINATION: GENERAL: The patient is awake and alert. He does not answer questions. VITAL SIGNS: Normal. He is afebrile. He is not tachycardic. HEENT: Sclerae not icteric. NECK: Had no masses. LUNGS: Equal breath sounds and are clear bilaterally. CARDIAC: Regular rate and rhythm with no murmur. ABDOMEN: Mildly tender in the right upper quadrant. There is no distention. No mass. No organomegaly. EXTREMITIES: There is a right hemiplegia with slight contracture of the right arm. There is slight dependent edema. NEUROLOGIC: There is right hemiplegia. LABORATORY DATA: White blood cell count is normal. Hemoglobin and hematocrit 12.8 and 37.5, platelet count is normal. Chemistries; bilirubin on admission was 1.8, is now 1.3. AST, ALT, and alkaline phosphatase are mildly elevated. Potassium is 2.9. INR is prolonged at 1.65. PTT is also prolonged at 57.1. COVID test is pending. ASSESSMENT: An 79-year-old male with findings suggestive of possible acute cholecystitis with abnormal liver function tests and findings on CT suggestive of cholecystitis and gallstones. The patient will likely benefit from cholecystectomy once he is medically cleared. He has been on Xarelto, recommend holding this and also holding his Plavix. His coagulation studies are abnormal, this could be due to the anticoagulation he is on at this point. Plan to hold anticoagulation. Repeat the coag studies and he will likely benefit from cholecystectomy once he is medically cleared for surgery. Thank you for asking me to see Mr. Griffin. MD WHITLEY Hoyt/NICK /[id number]
[2019-11-10] MEDS: ASPIRIN 325 MG TAB EC PO SCH (08:44)
[2019-11-10] MEDS: FAMOTIDINE 20 MG TAB PO SCH (08:44)
[2019-11-10] MEDS: MULTIVITAMINS/MINERALS TAB PO SCH (08:44)
[2019-11-10] MEDS: DOCUSATE SODIUM 100 MG CAP PO SCH (08:44)
[2019-11-10] MEDS: OYST-CAL-D 500MG TABLET PO SCH ×2 (08:44→17:10)
[2019-11-10] MEDS: LEVETIRACETAM 500 MG TAB PO SCH ×2 (08:44→21:55)
[2019-11-10] MEDS: HYDROXYUREA 500 MG CAPSULE PO SCH ×2 (08:44→17:10)
[2019-11-10] MEDS: NIFEDIPINE CR 30 MG TAB PO SCH (08:45)
--- NOTE | 2019-11-10 08:47 | NUR ---
PATIENT AWAKE AND ALERT. ACYANOTIC. RESTING IN SEMI JAQUEZ'S POSITION. PATIENT BREAKFAST TRAY NOTED TO BEDSIDE TABLE. BLUEBERRY MUFFIN CONSUMED BY PATIENT. PATIENT REFUSED REMAINING CONTENTS OF BREAKFAST SUCH GRITS AND EGGS.
[2019-11-10] MEDS ORDERED: POTASSIUM CHLORIDE 20MEQ/100ML 100 ML IV ONE (09:45)
[2019-11-10] MEDS: SODIUM CHLORIDE 0.9% 1000ML 1,000 ML IV SCH ×2 (10:03→15:01)
--- NOTE | 2019-11-10 10:05 | NUR ---
PHYSICAL THERAPIST AT BEDSIDE. PATIENT AWAKE AND ALERT. ACYANOTIC. PATIENT TRANSFERRED FROM CHAIR BACK TO BED. BED LOW AND LOCKED. SIDE RAILS UP X2. CALL LIGHT IN REACH. NO DISTRESS NOTED.
--- NOTE | 2019-11-10 14:41 | NUR ---
Patient is at his baseline functional level and skilled PT services not indicated at this time. Thank you Addendum: 11/10/19 at 1441 by Joey moscoso PT Amended: Links added.
[2019-11-10] MEDS: ANAGRELIDE HCL 0.5 MG CAP PO SCH ×2 (18:00→21:00)
--- NOTE | 2019-11-10 21:00 | NUR ---
Received report from Hanny (CHATA). Patient alert and oriented x 2-3. Patient mostly aphasic and responds to questions with nodding. Patient understands micronesian language only. Patient aware he will have Laparoscopic Cholecystectomy, Possible Open cholecystectomy tomorrow (11/11/19). Pt on bedrest. With right hemiplegia and contracted right arm. Pt diapered and has total incontinence (bowel and bladder). Call boyce within reach. Bed alarm active. Will monitor closely.
[2019-11-10] MEDS: MIRTAZAPINE 15 MG TAB PO SCH (21:55)
[2019-11-10] MEDS: ATORVASTATIN 20 MG TAB PO SCH (21:55)
[2019-11-11] VITALS (9 sets, daily range): BP systolic 104–173; BP diastolic 51–71
--- NOTE | 2019-11-11 | NUR ---
Diaper changed. Linen and draw sheet changed. Patient soiled diaper with urine. Pt in stable condition.
[2019-11-11] MEDS: HYDRALAZINE HCL 20 MG/ML VIAL IV PRN (02:59)
[2019-11-11] MEDS: PIPER-TAZ 3.375 GM 50 ML IV SCH ×4 (03:00→16:00)
[2019-11-11] MEDS: LEVOTHYROXINE SODIUM 75 MCG TAB PO SCH (03:28)
--- NOTE | 2019-11-11 04:52 | NUR ---
Patient given a hibiclens bed bath at this time. Diaper and linens were changed. Pt repositioned. Pt tolerated bath well.
[2019-11-11 05:00] LABS: EOSINOPHILS # (AUTO) 0.1 (0.0-0.4); EOSINOPHILS % 2.9 % (0.0-6.0); HEMATOCRIT 34.8 % (38.2-49.6); HEMOGLOBIN 12.5 g/dL (14.0-18.0); LYMPHOCYTES % 30.9 % (18.0-39.1); MEAN CORPUSCULAR HEMOGLOBIN 42.7 pg (28-32); MEAN CORPUSCULAR HGB CONC 35.9 g/dL (31-35); MEAN CORPUSCULAR VOLUME 118.8 fL (81-99); MONOCYTES # (AUTO) 0.2 (0.2-0.8); MONOCYTES % 7.4 % (4.4-11.3); NEUTROPHILS # (AUTO) 1.8 (2.1-6.9); NEUTROPHILS % 56.2 % (38.7-80.0); PLATELET COUNT 219 x10e3/uL (140-360); RED BLOOD COUNT 2.93 x10e6/uL (4.3-5.7); RED CELL DISTRIBUTION WIDTH 13.8 % (11.7-14.4)
[2019-11-11 05:34] LABS: ALANINE AMINOTRANSFERASE 118 IU/L (0-55); ALBUMIN 2.8 g/dL (3.5-5.0); ALBUMIN/GLOBULIN RATIO 1.1 (0.8-2.0); ALKALINE PHOSPHATASE 171 IU/L (40-150); ANION GAP 15.3 mmol/L (8-16); BLOOD UREA NITROGEN 9 mg/dL (7-26); BUN/CREATININE RATIO 12 (6-25); CALCIUM 8.5 mg/dL (8.4-10.2); CARBON DIOXIDE 20 mmol/L (22-29); CHLORIDE 109 mmol/L (98-107); CREATININE, SERUM 0.78 mg/dL (0.72-1.25); EST GLOMERULAR FILTRATION RATE > 60 ML/MIN (60-); GLUCOSE 79 mg/dL (74-118); MAGNESIUM 1.4 MG/DL (1.3-2.1); POTASSIUM 3.3 mmol/L (3.5-5.1); SODIUM 141 mmol/L (136-145)
[2019-11-11] MEDS ORDERED: LEVOTHYROXINE SODIUM 100 MCG TAB PO ONE (06:15)
--- NOTE | 2019-11-11 07:25 | NUR ---
ASSUMED CARE. RESTING IN BED WITH EYES CLOSED. ACYANOTIC. EQUAL RISE AND FALL OF CHEST NOTED WITH EACH RESPIRATIONS. SIDE RAILS UP X2. BED LOW AND LOCKED. CALL LIGHT IN REACH.
[2019-11-11] MEDS: SODIUM CHLORIDE 0.9% 1000ML 1,000 ML IV SCH ×2 (07:56→10:42)
--- NOTE | 2019-11-11 08:07 | NUR ---
Patient transferred from unit to OR for scheduled procedure. Awake and alert. Acyanotic. No distress noted.
[2019-11-11] MEDS ORDERED: BUPIVACAINE HCL 0.5% INJ 30 ML VIAL INJ ONE (08:39)
[2019-11-11] MEDS: LEVETIRACETAM 500 MG TAB PO SCH ×2 (08:45→22:00)
[2019-11-11] MEDS: ANAGRELIDE HCL 0.5 MG CAP PO SCH ×4 (09:00→21:00)
[2019-11-11] MEDS ORDERED: SUGAMMADEX SODIUM 200 MG/2 ML VIAL IV ONE (09:13)
[2019-11-11] MEDS ORDERED: MORPHINE SULFATE INJ 4 MG/ML INJ 1ML IV PRN (09:30)
[2019-11-11] MEDS ORDERED: ONDANSETRON HCL INJ 2MG/ML 2ML 2 MG/ML VIAL IV PRN (09:30)
[2019-11-11] MEDS ORDERED: HYDROCODONE/APAP 5MG-325MG TAB PO PRN (09:30)
--- NOTE | 2019-11-11 09:52 | Operative Report ---
DATE OF PROCEDURE: 11/11/2019 SURGEON: Renan Luther MD PREOPERATIVE DIAGNOSES: [id number] cholecystitis and cholelithiasis. POSTOPERATIVE DIAGNOSES: [id number] cholecystitis and cholelithiasis. PROCEDURES: Diagnostic laparoscopy and laparoscopic cholecystectomy. PHONOGRAPH CARTRIDGE ASSEMBLER: None. ANESTHESIA: General endotracheal. INDICATIONS AND FINDINGS: The patient is an 79-year-old male, presented with complaints of abdominal pain with abnormal liver function tests. Workup revealed gallstones. Surgery based on the gallbladder that was distended and containing multiple stones. Cystic duct was about 3 mm in diameter. Common bile duct was about 5 mm in diameter. Liver had some mild nodularity. Lower abdomen appeared normal. TECHNIQUE: After adequate general endotracheal anesthesia, the patient in supine position, the abdomen was prepped and draped in a sterile fashion with ChloraPrep solution. Skin in the umbilicus was infiltrated with 0.5% Marcaine. An incision was made in the umbilicus. Abdominal wall was elevated and Veress needle was introduced. Pneumoperitoneum was then created. A 10 mm trocar and cannula were then passed through the umbilical wound. Laparoscopic camera was introduced. Initial laparoscopy revealed the gallbladder to be distended. Liver had some mild nodularity. There was no free fluid. The lower abdomen appeared normal. A 10 mm trocar and cannula were placed in the epigastrium. Two 5 mm trocars and cannulas were placed in the right upper quadrant. These were placed under direct vision. Fundus of the gallbladder was grasped, retracted superiorly. Neck of the gallbladder was grasped, retracted laterally. Peritoneum over the neck of the gallbladder was incised. The gallbladder and cystic duct junction were dissected free. Cystic artery was also dissected free. The neck of the gallbladder completely dissected free. Cystic artery was divided between hemoclips close to the gallbladder. Cystic duct was also divided between hemoclips with 3 clips being left on the common bile duct side. The gallbladder was dissected free from the liver. There was a posterior branch of cystic artery, which was divided between hemoclips close to the gallbladder. Once the gallbladder was completely free, it was placed into an Endopouch and brought through the epigastric cannula. There were multiple stones. Gallbladder bed was inspected for hemostasis. There was one point which was bleeding, which was controlled with electrocautery. It was irrigated with saline. All fluid aspirated and inspected for hemostasis, which was seen to be adequate. Instruments and cannulas were then removed. Pneumoperitoneum was evacuated. Wounds were then closed. Fascia in the umbilical and epigastrium closed with 0 Vicryl. Skin to all wounds was closed with 4-0 Vicryl in subcuticular fashion. Dermabond and sterile dressing were applied to each wound. The patient tolerated the procedure well. Estimated blood loss was 15 mL. There were no complications. All counts were correct. The patient was taken to the recovery room in satisfactory condition. Renan Luther MD DWG/MODL /[id number] cc: MD Michael Best
[2019-11-11] MEDS: ASPIRIN 325 MG TAB EC PO SCH (10:41)
[2019-11-11] MEDS: NIFEDIPINE CR 30 MG TAB PO SCH (10:42)
[2019-11-11] MEDS: FAMOTIDINE 20 MG TAB PO SCH (10:42)
[2019-11-11] MEDS: DOCUSATE SODIUM 100 MG CAP PO SCH (10:42)
[2019-11-11] MEDS: OYST-CAL-D 500MG TABLET PO SCH ×2 (10:42→16:00)
[2019-11-11] MEDS: HYDROXYUREA 500 MG CAPSULE PO SCH ×2 (10:42→16:00)
[2019-11-11] MEDS: MULTIVITAMINS/MINERALS TAB PO SCH (10:42)
--- NOTE | 2019-11-11 10:43 | NUR ---
AAOX3. ACYANOTIC. NO DISTRESS NOTED. ARRIVED TO UNIT AT APPROXIMATELY 1035. CALL LIGHT IN REACH. SIDE RAILS UP X2. BED LOW AND LOCKED.
--- NOTE | 2019-11-11 14:49 | NUR ---
ST NOTE: Pt having surgery, unable to follow up on pt tolerance of diet, will follow up 11/12/19
[2019-11-11] MEDS ORDERED: MAGNESIUM SULFATE 2GM/50ML 50 ML IV ONE (18:45)
--- NOTE | 2019-11-11 19:00 | NUR ---
Patient visited in room during nursing rounds. Patient alert and oriented x 2-3. Patient mostly aphasic and responds to questions with nodding. Patient understands maori language only. S/P Laparoscopic Cholecystectomy with 4 lap sites on abd with band aid (C/D/I). On IVF (NS at 100ml/hr). Pt on bedrest. With right hemiplegia and contracted right arm. Pt diapered and has total incontinence (bowel and bladder). Call boyce within reach. Bed alarm active. Will monitor closely.
--- NOTE | 2019-11-11 19:25 | Progress Note ---
DATE: 11/11/2019 CONSULTING PHYSICIAN: Dr. Renan Luther SUBJECTIVE: The patient is supine in bed. He is non-verbal. He is able to shake his head yes and say "aha or yes." Otherwise nonverbal. Seen at 06:30 on 11/11/2019. OBJECTIVE: VITAL SIGNS: Temperature 97.4, he has been afebrile, pulse 53, blood pressure 135/71, respirations 16, oxygen saturation 100%. GENERAL: Supine in bed in a position. LUNGS: Clear to auscultation. RESPIRATORY: Pattern even and unlabored. HEENT: EOMI, neck is supple. CARDIOVASCULAR: Regular rate and rhythm without murmur. Normal saline infusing at 100 mL an hour in peripheral IV. ABDOMEN: Bowel sounds positive. Soft. Band-Aids covering trocar sites from surgery. EXTREMITIES: Without pitting edema. No clubbing, cyanosis, or marked swelling. He is wearing SCDs. NEUROLOGICAL: Nonfocal, nonverbal from history of CVA. LABORATORY DATA: WBCs 3.11, hemoglobin 12.5, hematocrit 34.8. PT 16.9, PTT 51.8 on the . Back to today's labs. Potassium is 3.3 (3.3, 2.9), chloride 109, serum CO2 of 20, BUN 9, creatinine 0.78, estimated GFR greater than 60. Magnesium 1.4. AST 37, ALT 118, alkaline phosphatase 171, total protein 5.3, albumin 2.8. ASSESSMENT/PLAN: 1. Acute cholecystitis, now status post laparoscopic cholecystectomy on 11/[address] Luther. Overall, the patient is doing well. He is on a GI soft diet. Continue IV fluids for now to ensure he gets enough hydration. Pain control. Encourage incentive spirometry. 2. Acute hypomagnesemia, magnesium level 1.43 g of magnesium sulfate had been ordered. 3. Acute hypokalemia. Potassium level 3.3. Once magnesium has been replaced, we asked 40 mEq potassium chloride to be given orally once today. 4. Controlled hypertension, blood pressure 135/71, continue same. 5. Polycythemia vera, continue Agrylin. 6. Underlying history of seizures and history of CVA, continue Keppra, anticoagulation has been held per physical therapy. The patient is at baseline. 7. Hypothyroidism, continue levothyroxine at increased doses, TSH elevated. 8. Prophylaxis, continue Pepcid and SCDs. TIME SPENT: 35 minutes. BILLING CODE: [id number]. Dictated by John Waller, SLOT SHIFT SUPERVISOR MD SALLIE Best/NICK /[id number]
[2019-11-11] MEDS ORDERED: MAGNESIUM SULF 1GRAM/DEXTROSE 100 ML IV ONE (20:45)
[2019-11-11] MEDS: MIRTAZAPINE 15 MG TAB PO SCH (22:00)
[2019-11-11] MEDS: ATORVASTATIN 20 MG TAB PO SCH (22:00)
[2019-11-11] MEDS ORDERED: POTASSIUM CHLORIDE 20 MEQ TAB CR PO ONE (22:45)
[2019-11-12] VITALS (7 sets, daily range): BP systolic 105–135; BP diastolic 57–83
[2019-11-12 05:00] LABS: BASOPHILS % 0.5 % (0.0-1.0); EOSINOPHILS % 1.1 % (0.0-6.0); HEMATOCRIT 25.4 % (38.2-49.6); HEMOGLOBIN 8.5 g/dL (14.0-18.0); LYMPHOCYTES # (AUTO) 0.6 (1.0-3.2); LYMPHOCYTES % 16.9 % (18.0-39.1); MEAN CORPUSCULAR HEMOGLOBIN 39.9 pg (28-32); MEAN CORPUSCULAR HGB CONC 33.5 g/dL (31-35); MEAN CORPUSCULAR VOLUME 119.2 fL (81-99); MONOCYTES # (AUTO) 0.4 (0.2-0.8); NEUTROPHILS # (AUTO) 2.6 (2.1-6.9); PLATELET COUNT 204 x10e3/uL (140-360); RED BLOOD COUNT 2.13 x10e6/uL (4.3-5.7)
[2019-11-12 05:22] LABS: ALANINE AMINOTRANSFERASE 78 IU/L (0-55); ALBUMIN 2.3 g/dL (3.5-5.0); ALBUMIN/GLOBULIN RATIO 1.2 (0.8-2.0); ALKALINE PHOSPHATASE 108 IU/L (40-150); ANION GAP 12.2 mmol/L (8-16); BLOOD UREA NITROGEN 9 mg/dL (7-26); BUN/CREATININE RATIO 11 (6-25); CALCIUM 7.2 mg/dL (8.4-10.2); CARBON DIOXIDE 18 mmol/L (22-29); CHLORIDE 115 mmol/L (98-107); CREATININE, SERUM 0.85 mg/dL (0.72-1.25); EST GLOMERULAR FILTRATION RATE > 60 ML/MIN (60-); GLUCOSE 95 mg/dL (74-118); POTASSIUM 3.2 mmol/L (3.5-5.1); SODIUM 142 mmol/L (136-145)
[2019-11-12] MEDS: SODIUM CHLORIDE 0.9% 1000ML 1,000 ML IV SCH ×4 (05:30→23:37)
[2019-11-12 05:48] LABS: MAGNESIUM 1.8 MG/DL (1.3-2.1)
[2019-11-12] MEDS ORDERED: POTASSIUM CHLORIDE 20 MEQ TAB CR PO STA (05:52)
[2019-11-12] MEDS ORDERED: SYNTHROID75 MCG PO (05:59)
[2019-11-12 06:32] LABS: LYMPHOCYTES % (MANUAL) 14 % (19-48); MONOCYTES % (MANUAL) 11 % (3.4-9.0); NEUTROPHILS % (MANUAL) 75 % (40-74)
[2019-11-12 06:33] LABS: OVALOCYTES FEW; PLATELET ESTIMATE ADEQUATE; RBC MORPHOLOGY COMMENT ABNORMAL
[2019-11-12 06:34] LABS: PLATELET MORPHOLOGY COMMENT NORMAL
[2019-11-12] MEDS: LEVOTHYROXINE SODIUM 75 MCG TAB PO SCH (06:47)
[2019-11-12] MEDS: PIPER-TAZ 3.375 GM 50 ML IV SCH ×4 (06:47→23:36)
[2019-11-12] MEDS ORDERED: ONDANSETRON HCL 4 MG ORAL DISINTEGRATING TAB PO PRN (08:15)
[2019-11-12] MEDS: ANAGRELIDE HCL 0.5 MG CAP PO SCH ×4 (09:00→21:00)
--- NOTE | 2019-11-12 09:16 | NUR ---
CALLED BOBBY SIMEONAN, HE IS OKAY WITH PT RETURNING TO [facility]. EDUCATED ABOUT IMM FILED IN CHART AND FAXED CLINICALS TO FACILITY. LET BOBBY KNOW IT IS PENDING SOME REPEAT LABS AT 1500 AND IF ALL GOES WELL WILL RETURN TO [facility] THIS EVENING. HE STATES THAT SOMEONE CALLED HIM LAST NIGHT AND ASKED FOR MEDICATIONS TO BE BROUGHT FROM FACILITY, HE STATES THAT IF RETURNING WILL NOT BRING THEM, HE WILL BE RETURNING THERE MOST LIKELY THIS EVENING.
[2019-11-12] MEDS: OYST-CAL-D 500MG TABLET PO SCH ×2 (09:21→16:41)
[2019-11-12] MEDS: NIFEDIPINE CR 30 MG TAB PO SCH (09:21)
[2019-11-12] MEDS: DOCUSATE SODIUM 100 MG CAP PO SCH (09:21)
[2019-11-12] MEDS: FAMOTIDINE 20 MG TAB PO SCH (09:21)
[2019-11-12] MEDS: HYDROXYUREA 500 MG CAPSULE PO SCH ×2 (09:21→16:41)
[2019-11-12] MEDS: LEVETIRACETAM 500 MG TAB PO SCH ×2 (09:21→20:37)
[2019-11-12] MEDS: MULTIVITAMINS/MINERALS TAB PO SCH (09:21)
[2019-11-12] MEDS: ASPIRIN 325 MG TAB EC PO SCH (09:21)
[2019-11-12 15:33] LABS: HEMATOCRIT 30.2 % (38.2-49.6); HEMOGLOBIN 10.2 g/dL (14.0-18.0)
--- NOTE | 2019-11-12 19:10 | NUR ---
RECEIVED BEDSIDE SHIFT REPORT FROM PREVIOUS NURSE. CALL LIGHT WITHIN REACH. CALL LIGHT WITHIN REACH.
[2019-11-12] MEDS: ATORVASTATIN 20 MG TAB PO SCH (20:37)
[2019-11-12] MEDS: MIRTAZAPINE 15 MG TAB PO SCH (20:37)
[2019-11-13] VITALS: BP 133/80
[2019-11-13 04:00] VITALS: BP 136/67
[2019-11-13 04:55] LABS: HEMATOCRIT 24.4 % (38.2-49.6); HEMOGLOBIN 8.3 g/dL (14.0-18.0); MEAN CORPUSCULAR HEMOGLOBIN 41.9 pg (28-32); MEAN CORPUSCULAR VOLUME 123.2 fL (81-99); PLATELET COUNT 208 x10e3/uL (140-360); RED BLOOD COUNT 1.98 x10e6/uL (4.3-5.7); RED CELL DISTRIBUTION WIDTH 14.1 % (11.7-14.4)
[2019-11-13 05:14] LABS: ANION GAP 12.8 mmol/L (8-16); BLOOD UREA NITROGEN 7 mg/dL (7-26); BUN/CREATININE RATIO 8 (6-25); CALCIUM 7.8 mg/dL (8.4-10.2); CARBON DIOXIDE 20 mmol/L (22-29); CHLORIDE 111 mmol/L (98-107); CREATININE, SERUM 0.85 mg/dL (0.72-1.25); EST GLOMERULAR FILTRATION RATE > 60 ML/MIN (60-); GLUCOSE 77 mg/dL (74-118); POTASSIUM 3.8 mmol/L (3.5-5.1); SODIUM 140 mmol/L (136-145)
[2019-11-13] MEDS: PIPER-TAZ 3.375 GM 50 ML IV SCH ×3 (06:08→17:03)
[2019-11-13] MEDS: LEVOTHYROXINE SODIUM 75 MCG TAB PO SCH (06:08)
--- NOTE | 2019-11-13 07:09 | NUR ---
GAVE BEDSIDE SHIFT REPORT TO ONCOMING NURSE. CALL LIGHT WITHIN REACH. PATIENT IN BED
[2019-11-13 07:38] LABS: EOSINOPHILS % (MANUAL) 1 % (0-7); LYMPHOCYTES % (MANUAL) 18 % (19-48); MONOCYTES % (MANUAL) 6 % (3.4-9.0); NEUTROPHILS % (MANUAL) 75 % (40-74); OVALOCYTES FEW; PLATELET ESTIMATE ADEQUATE; RBC MORPHOLOGY COMMENT NORMAL
[2019-11-13 07:39] LABS: PLATELET MORPHOLOGY COMMENT NORMAL
[2019-11-13 07:41] VITALS: BP 150/80
[2019-11-13] MEDS ORDERED: RIVAROXABAN 10 MG TABLET PO SCH (09:00)
[2019-11-13] MEDS: OYST-CAL-D 500MG TABLET PO SCH ×2 (09:00→17:00)
[2019-11-13] MEDS: MULTIVITAMINS/MINERALS TAB PO SCH (09:00)
[2019-11-13] MEDS: ANAGRELIDE HCL 0.5 MG CAP PO SCH ×3 (09:00→17:03)
[2019-11-13] MEDS: LEVETIRACETAM 500 MG TAB PO SCH (09:45)
[2019-11-13] MEDS: ASPIRIN 325 MG TAB EC PO SCH (09:45)
[2019-11-13] MEDS: FAMOTIDINE 20 MG TAB PO SCH (09:45)
[2019-11-13] MEDS: DOCUSATE SODIUM 100 MG CAP PO SCH (09:45)
[2019-11-13] MEDS: HYDROXYUREA 500 MG CAPSULE PO SCH ×2 (09:45→17:03)
[2019-11-13] MEDS: NIFEDIPINE CR 30 MG TAB PO SCH (09:46)
[2019-11-13 09:56] VITALS: BP 150/83
[2019-11-13 12:01] VITALS: BP 144/80
[2019-11-13 15:10] LABS: HEMATOCRIT 27.4 % (38.2-49.6); HEMOGLOBIN 9.3 g/dL (14.0-18.0)
--- NOTE | 2019-11-13 15:53 | NUR ---
[facility]IT[facility] FACILITY DISCHARGE INFORMATION PATIENT HAS BEEN ACCEPTED TO: NAME: [facility] ADDRESS:[id number] [place] [address] ACCEPTING [employer] CLERK: SHARLA GREY MD:KEVIN ROOM:[id number] NURSE CALL REPORT TO: [phone] IMM SIGNED AND OBTAINED (if applicable): IMM THE FOLLOWING DOCUMENTS MUST ACCOMPANY PATIENT FOR TRANSFER: COPIED CHART: PACKET
[2019-11-13 15:55] VITALS: BP 141/81
--- NOTE | 2019-11-13 16:17 | NUR ---
ATTEMPTED TO [facility] [phone] FOR [facility], GRAND DAUGHTER THREE TIMES, EACH TIME VERBAL MESSAGE ANNOUNCED THAT RECIPIENT HAS A VOICEMAIL THAT HAS NOT BEEN SET UP YET.
--- NOTE | 2019-11-13 16:35 | NUR ---
CALLED [phone], FOR [facility], SPOKE TO MARY VILA, GAVE REPORT, PATIENT WILL BE GOING INTO ROOM 313A.
[2019-11-13] MEDS ORDERED: CLOPIDOGREL BISULFATE 75 MG TAB PO SCH (21:00)
--- NOTE | 2019-11-14 04:22 | Discharge Summary ---
ADMISSION DIAGNOSES: Cholecystitis, hypertension, hyperlipidemia, hypothyroidism, seizures, history of CVA, polycythemia vera, and hypokalemia. DISCHARGE DIAGNOSES: Cholecystitis, hypertension, hyperlipidemia, hypothyroidism, seizures, history of CVA, polycythemia vera, and hypokalemia plus rule out mendoza virus plus rule out choledocholithiasis. HISTORY: CVA with right-sided deficit, polycythemia vera, chronic myeloproliferative disease, seizures, right lower extremity DVT, hyperlipidemia, hypothyroidism, anxiety, hypertension, and dysphagia. SURGICAL HISTORY: Unable to obtain. FAMILY HISTORY: Unable to obtain. HOSPITAL COURSE: An 79-year-old male admits from [facility] also known as [facility] due to elevated LFTs. History and physical for history and HPI from previous medical record due to AMS and CVA history. On admission, CT of the abdomen and pelvis showed multiple gallstones with gallbladder wall thickening, enhancement in pericholecystic fluid compatible with cholecystitis. Due to the elevated LFTs, an MRI was done, which showed cholelithiasis with mild gallbladder wall thickening and pericholecystic edema. However, the gallbladder is not distended. No biliary dilatation or choledocholithiasis. The patient was taken for a laparoscopic cholecystectomy on November 10. The patient tolerated the procedure well and diet was slowly advanced. After the procedure, the hemoglobin dropped so he was kept overnight. It appeared to be due to hemodilution as the hemoglobin remained stable after that, there were no signs of bleeding. He is tolerating diet and passing gas. He will discharge back to [facility] on same medications with an increased dose of levothyroxine. He will follow up with primary care in 1 to 2 weeks. The patient understands discharge instructions and agrees to plan. Dictated by Erika Morton NP MD SG Best/NICK /[id number]
== END 2019-11-13 18:30 | DRG 418 ==
LOC: ER 12:10 → ERHOLD 17:53 → MED/SURG 20:50
PROVIDERS: ADMIT Internal Medicine; ATTEND Internal Medicine
PROC: 0FT44ZZ Resection of Gallbladder, Percutaneous Endoscopic Approach (ICD-10-PCS; principal; 2019-11-08)
DX: K80.12 Calculus of gallbladder with acute and chronic cholecystitis without obstruction (principal); I69.351 Hemiplegia and hemiparesis following cerebral infarction affecting right dominant side; G40.919 Epilepsy, unspecified, intractable, without status epilepticus; Z11.59 Encounter for screening for other viral diseases; Z86.718 Personal history of other venous thrombosis and embolism; Z79.01 Long term (current) use of anticoagulants; E03.9 Hypothyroidism, unspecified; F41.9 Anxiety disorder, unspecified; I10 Essential (primary) hypertension; R13.10 Dysphagia, unspecified; E78.5 Hyperlipidemia, unspecified; D45 Polycythemia vera; E87.6 Hypokalemia; Z79.82 Long term (current) use of aspirin; Z79.890 Hormone replacement therapy; Z79.899 Other long term (current) drug therapy; E83.42 Hypomagnesemia
CPT/HCPCS: 36415; 74177; 74181; 80048; 80053; 82150; 82550; 82553; 83690; 83735; 84100; 84443; 84484; 85007; 85014; 85018; 85025; 85027; 85610; 85730; 88304; 96361; 97139; 99284; J0360; J2543; J3475; J3480; J7030; Q9967; U0002

== ENCOUNTER 2020-01-30 19:54 | Inpatient (IN) | payer MEDICARE, OTHER ==
[~2020-01-30] VITALS: Ht 330.2 cm; Wt 62.1 kg
[~2020-01-30 19:54] MED LIST: AGRYLIN0.5 M1 PO; ARTIFICIAL TEAR15 M3 OP; ASPIRIN ENTERI325 MG PO; ATORVASTATIN CA20 MG PO; CLOPIDOGREL75 MG PO; DOCUSATE SODIU100 MG PO; FAMOTIDINE20 MG PO; HYDREA500 MG; KEPPRA500 MG PO; LEVOTHYROXINE100 MC1 PO; LEVOTHYROXINE50 MCG PO; MIRTAZAPINE7.5 MG PO; MULTIVITAMINS1 EAC7 PO; OYSTER SHELL 51 EACH; PROCARDIA XL30 MG; SYNTHROID75 MCG PO; XARELTO10 MG PO
[2020-01-30 20:30] LABS: BASOPHILS % 0.6 % (0.0-1.0); EOSINOPHILS # (AUTO) 0.2 (0.0-0.4); EOSINOPHILS % 3.5 % (0.0-6.0); HEMATOCRIT 22.1 % (38.2-49.6); LYMPHOCYTES # (AUTO) 1.6 (1.0-3.2); LYMPHOCYTES % 32.5 % (18.0-39.1); MEAN CORPUSCULAR HEMOGLOBIN 33.3 pg (28-32); MEAN CORPUSCULAR HGB CONC 30.8 g/dL (31-35); MEAN CORPUSCULAR VOLUME 108.3 fL (81-99); MONOCYTES # (AUTO) 0.3 (0.2-0.8); MONOCYTES % 6.3 % (4.4-11.3); NEUTROPHILS # (AUTO) 2.8 (2.1-6.9); NEUTROPHILS % 56.5 % (38.7-80.0); PLATELET COUNT 253 x10e3/uL (140-360); RED BLOOD COUNT 2.04 x10e6/uL (4.3-5.7); RED CELL DISTRIBUTION WIDTH 15.9 % (11.7-14.4)
[2020-01-30 20:36] LABS: HEMOGLOBIN 6.8 g/dL (14.0-18.0)
[2020-01-30 20:47] LABS: ALANINE AMINOTRANSFERASE 18 IU/L (0-55); ALBUMIN 2.9 g/dL (3.5-5.0); ALBUMIN/GLOBULIN RATIO 1.1 (0.8-2.0); ALKALINE PHOSPHATASE 95 IU/L (40-150); BLOOD UREA NITROGEN 18 mg/dL (7-26); BUN/CREATININE RATIO 20 (6-25); CARBON DIOXIDE 24 mmol/L (22-29); CHLORIDE 109 mmol/L (98-107); CREATINE KINASE 20 IU/L (30-200); CREATININE, SERUM 0.92 mg/dL (0.72-1.25); EST GLOMERULAR FILTRATION RATE > 60 ML/MIN (60-); GLUCOSE 102 mg/dL (74-118); SODIUM 140 mmol/L (136-145)
[2020-01-30] MEDS ORDERED: SODIUM CHLORIDE 0.9% 250ML 250 ML IV ONE (21:00)
[2020-01-30 23:45] VITALS: BP 114/74
[2020-01-31] VITALS (8 sets, daily range): BP systolic 131–204; BP diastolic 64–97
[2020-01-31] MEDS ORDERED: SODIUM CHLORIDE 0.9% 250ML 250 ML ONE (00:48)
[2020-01-31] MEDS ORDERED: LEVOTHYROXINE75 MCG PO (04:47)
[2020-01-31] MEDS ORDERED: TYLENOL325 M2 PO (04:47)
[2020-01-31] MEDS ORDERED: NORCO 5-325 TA1 EACH PO (04:47)
[2020-01-31] MEDS ORDERED: HYDROCODONE/APAP 5MG-325MG TAB PO PRN (10:00)
[2020-01-31] MEDS ORDERED: ACETAMINOPHEN 325 MG TAB PO PRN (10:45)
[2020-01-31] MEDS ORDERED: IOPAMIDOL 370 MG/ML 200 ML INFUS..BTL INJ ONE (11:18)
[2020-01-31] MEDS ORDERED: SODIUM CHLORIDE 0.9% 50ML 50 ML ONE (11:18)
[2020-01-31 12:33] LABS: BASOPHILS % 0.4 % (0.0-1.0); EOSINOPHILS # (AUTO) 0.2 (0.0-0.4); HEMATOCRIT 32.2 % (38.2-49.6); HEMOGLOBIN 10.2 g/dL (14.0-18.0); LYMPHOCYTES # (AUTO) 1.2 (1.0-3.2); LYMPHOCYTES % 21.7 % (18.0-39.1); MEAN CORPUSCULAR HEMOGLOBIN 29.9 pg (28-32); MEAN CORPUSCULAR HGB CONC 31.7 g/dL (31-35); MEAN CORPUSCULAR VOLUME 94.4 fL (81-99); MONOCYTES # (AUTO) 0.2 (0.2-0.8); MONOCYTES % 3.7 % (4.4-11.3); NEUTROPHILS # (AUTO) 3.9 (2.1-6.9); NEUTROPHILS % 70.3 % (38.7-80.0); PLATELET COUNT 253 x10e3/uL (140-360); RED BLOOD COUNT 3.41 x10e6/uL (4.3-5.7); RED CELL DISTRIBUTION WIDTH 22.8 % (11.7-14.4)
[2020-01-31 12:43] LABS: INR 1.24; PROTHROMBIN TIME 16.2 seconds (11.9-14.5)
[2020-01-31 12:44] LABS: PARTIAL THROMBOPLASTIN TIME 38.4 seconds (23.8-35.5)
[2020-01-31 12:54] LABS: ALANINE AMINOTRANSFERASE 17 IU/L (0-55); ALBUMIN/GLOBULIN RATIO 1.1 (0.8-2.0); ALKALINE PHOSPHATASE 96 IU/L (40-150); ANION GAP 9.5 mmol/L (8-16); BLOOD UREA NITROGEN 12 mg/dL (7-26); BUN/CREATININE RATIO 15 (6-25); CALCIUM 8.3 mg/dL (8.4-10.2); CARBON DIOXIDE 23 mmol/L (22-29); CHLORIDE 107 mmol/L (98-107); CREATININE, SERUM 0.79 mg/dL (0.72-1.25); EST GLOMERULAR FILTRATION RATE > 60 ML/MIN (60-); GLUCOSE 85 mg/dL (74-118); POTASSIUM 3.5 mmol/L (3.5-5.1); SODIUM 136 mmol/L (136-145)
[2020-01-31] MEDS: HYDROXYUREA 500 MG CAPSULE PO SCH (13:00)
[2020-01-31] MEDS: LEVOTHYROXINE SODIUM 75 MCG TAB PO SCH (13:00)
[2020-01-31] MEDS: NIFEDIPINE CR 30 MG TAB PO SCH (13:00)
[2020-01-31] MEDS: MULTIVITAMINS/MINERALS TAB PO SCH (13:00)
[2020-01-31 13:27] LABS: THYROID STIMULATING HORMONE 4.32 uIU/mL (0.350-4.940)
[2020-01-31] MEDS: ARTIFICIAL TEARS (OPTH) 15 ML BTL OP SCH (17:00)
[2020-01-31] MEDS: LEVETIRACETAM 500 MG TAB PO SCH ×2 (18:10→20:56)
[2020-01-31] MEDS: ANAGRELIDE HCL 0.5 MG CAP PO SCH (18:11)
[2020-01-31] MEDS: ATORVASTATIN 20 MG TAB PO SCH (20:56)
[2020-01-31] MEDS: MIRTAZAPINE 15 MG TAB PO SCH (20:56)
[2020-02-01] VITALS (8 sets, daily range): BP systolic 119–140; BP diastolic 46–83
[2020-02-01 06:41] LABS: BASOPHILS % 0.5 % (0.0-1.0); EOSINOPHILS # (AUTO) 0.1 (0.0-0.4); EOSINOPHILS % 1.7 % (0.0-6.0); HEMATOCRIT 27.6 % (38.2-49.6); LYMPHOCYTES # (AUTO) 0.8 (1.0-3.2); LYMPHOCYTES % 13.2 % (18.0-39.1); MEAN CORPUSCULAR HGB CONC 32.6 g/dL (31-35); MEAN CORPUSCULAR VOLUME 95.2 fL (81-99); MONOCYTES # (AUTO) 0.5 (0.2-0.8); MONOCYTES % 7.8 % (4.4-11.3); NEUTROPHILS # (AUTO) 4.6 (2.1-6.9); NEUTROPHILS % 76.1 % (38.7-80.0); PLATELET COUNT 206 x10e3/uL (140-360); RED CELL DISTRIBUTION WIDTH 22.5 % (11.7-14.4)
[2020-02-01 07:01] LABS: ANION GAP 9.3 mmol/L (8-16); BLOOD UREA NITROGEN 13 mg/dL (7-26); BUN/CREATININE RATIO 17 (6-25); CALCIUM 7.8 mg/dL (8.4-10.2); CARBON DIOXIDE 23 mmol/L (22-29); CHLORIDE 110 mmol/L (98-107); CREATININE, SERUM 0.77 mg/dL (0.72-1.25); EST GLOMERULAR FILTRATION RATE > 60 ML/MIN (60-); GLUCOSE 89 mg/dL (74-118); POTASSIUM 3.3 mmol/L (3.5-5.1); SODIUM 139 mmol/L (136-145)
[2020-02-01] MEDS: NIFEDIPINE CR 30 MG TAB PO SCH (09:00)
[2020-02-01] MEDS: HYDROXYUREA 500 MG CAPSULE PO SCH (09:00)
[2020-02-01] MEDS: MULTIVITAMINS/MINERALS TAB PO SCH (09:00)
[2020-02-01] MEDS: DOCUSATE SODIUM 100 MG CAP PO SCH (09:00)
[2020-02-01] MEDS: LEVOTHYROXINE SODIUM 75 MCG TAB PO SCH (09:00)
[2020-02-01] MEDS: LEVETIRACETAM 500 MG TAB PO SCH ×2 (10:00→21:12)
[2020-02-01] MEDS ORDERED: POTASSIUM CHLORIDE 10MEQ EA PO ONE (10:30)
[2020-02-01] MEDS ORDERED: FUROSEMIDE INJ 10 MG/ML 4 ML VIAL IV ONE (10:30)
[2020-02-01] MEDS: ANAGRELIDE HCL 0.5 MG CAP PO SCH ×2 (11:43→18:37)
[2020-02-01] MEDS: ARTIFICIAL TEARS (OPTH) 15 ML BTL OP SCH ×2 (11:46→18:37)
[2020-02-01] MEDS: ENOXAPARIN SOD INJ 40 MG/0.4 ML SYR SC SCH (18:37)
[2020-02-01] MEDS: ATORVASTATIN 20 MG TAB PO SCH (21:12)
[2020-02-01] MEDS: MIRTAZAPINE 15 MG TAB PO SCH (21:12)
[2020-02-02] VITALS (12 sets, daily range): BP systolic 116–140; BP diastolic 53–84
[2020-02-02 07:14] LABS: BASOPHILS % 0.6 % (0.0-1.0); EOSINOPHILS # (AUTO) 0.1 (0.0-0.4); EOSINOPHILS % 2.7 % (0.0-6.0); HEMATOCRIT 31.1 % (38.2-49.6); HEMOGLOBIN 9.6 g/dL (14.0-18.0); LYMPHOCYTES # (AUTO) 1.3 (1.0-3.2); LYMPHOCYTES % 25.1 % (18.0-39.1); MEAN CORPUSCULAR HEMOGLOBIN 29.6 pg (28-32); MEAN CORPUSCULAR HGB CONC 30.9 g/dL (31-35); MONOCYTES # (AUTO) 0.6 (0.2-0.8); MONOCYTES % 11.1 % (4.4-11.3); NEUTROPHILS # (AUTO) 3.1 (2.1-6.9); NEUTROPHILS % 59.4 % (38.7-80.0); PLATELET COUNT 213 x10e3/uL (140-360); RED BLOOD COUNT 3.24 x10e6/uL (4.3-5.7); RED CELL DISTRIBUTION WIDTH 21.8 % (11.7-14.4)
[2020-02-02 07:36] LABS: ANION GAP 11.7 mmol/L (8-16); BLOOD UREA NITROGEN 20 mg/dL (7-26); BUN/CREATININE RATIO 20 (6-25); CALCIUM 8.1 mg/dL (8.4-10.2); CARBON DIOXIDE 24 mmol/L (22-29); CHLORIDE 108 mmol/L (98-107); CREATININE, SERUM 1.01 mg/dL (0.72-1.25); EST GLOMERULAR FILTRATION RATE > 60 ML/MIN (60-); GLUCOSE 80 mg/dL (74-118); POTASSIUM 3.7 mmol/L (3.5-5.1); SODIUM 140 mmol/L (136-145)
[2020-02-02] MEDS: FUROSEMIDE INJ 10 MG/ML 4 ML VIAL IV SCH (08:52)
[2020-02-02] MEDS: ANAGRELIDE HCL 0.5 MG CAP PO SCH (08:53)
[2020-02-02] MEDS: HYDROXYUREA 500 MG CAPSULE PO SCH (08:53)
[2020-02-02] MEDS: DOCUSATE SODIUM 100 MG CAP PO SCH (08:53)
[2020-02-02] MEDS: POTASSIUM CHLORIDE 10MEQ EA PO SCH (08:54)
[2020-02-02] MEDS: MULTIVITAMINS/MINERALS TAB PO SCH (08:54)
[2020-02-02] MEDS: LEVETIRACETAM 500 MG TAB PO SCH ×2 (08:55→21:25)
[2020-02-02] MEDS: NIFEDIPINE CR 30 MG TAB PO SCH (08:55)
[2020-02-02] MEDS: LEVOTHYROXINE SODIUM 75 MCG TAB PO SCH (08:55)
[2020-02-02] MEDS: ARTIFICIAL TEARS (OPTH) 15 ML BTL OP SCH ×2 (09:00→16:47)
[2020-02-02] MEDS: ENOXAPARIN SOD INJ 40 MG/0.4 ML SYR SC SCH (16:47)
[2020-02-02] MEDS: ATORVASTATIN 20 MG TAB PO SCH (20:42)
[2020-02-02] MEDS: MIRTAZAPINE 15 MG TAB PO SCH (20:42)
[2020-02-03] VITALS (8 sets, daily range): BP systolic 99–147; BP diastolic 45–87
[2020-02-03] MEDS: ARTIFICIAL TEARS (OPTH) 15 ML BTL OP SCH ×2 (11:21→16:43)
[2020-02-03] MEDS: MULTIVITAMINS/MINERALS TAB PO SCH (11:21)
[2020-02-03] MEDS: FUROSEMIDE INJ 10 MG/ML 4 ML VIAL IV SCH (11:21)
[2020-02-03] MEDS: DOCUSATE SODIUM 100 MG CAP PO SCH (11:21)
[2020-02-03] MEDS: POTASSIUM CHLORIDE 10MEQ EA PO SCH (11:21)
[2020-02-03] MEDS: LEVOTHYROXINE SODIUM 75 MCG TAB PO SCH (11:22)
[2020-02-03] MEDS: NIFEDIPINE CR 30 MG TAB PO SCH (11:22)
[2020-02-03] MEDS: LEVETIRACETAM 500 MG TAB PO SCH ×2 (11:22→21:08)
[2020-02-03] MEDS: ENOXAPARIN SOD INJ 40 MG/0.4 ML SYR SC SCH (16:44)
[2020-02-03] MEDS: MIRTAZAPINE 15 MG TAB PO SCH (21:00)
[2020-02-03] MEDS: ATORVASTATIN 20 MG TAB PO SCH (21:00)
[2020-02-04] VITALS: BP 126/57
[2020-02-04 04:00] VITALS: BP 141/70
[2020-02-04 09:11] VITALS: BP 118/17
[2020-02-04 09:13] VITALS: BP 118/17
[2020-02-04] MEDS: ARTIFICIAL TEARS (OPTH) 15 ML BTL OP SCH (09:21)
[2020-02-04] MEDS: FUROSEMIDE INJ 10 MG/ML 4 ML VIAL IV SCH (09:22)
[2020-02-04] MEDS: POTASSIUM CHLORIDE 10MEQ EA PO SCH (09:22)
[2020-02-04] MEDS: DOCUSATE SODIUM 100 MG CAP PO SCH (09:22)
[2020-02-04] MEDS: LEVOTHYROXINE SODIUM 75 MCG TAB PO SCH (09:23)
[2020-02-04] MEDS: MULTIVITAMINS/MINERALS TAB PO SCH (09:23)
[2020-02-04] MEDS: LEVETIRACETAM 500 MG TAB PO SCH (09:23)
[2020-02-04] MEDS: NIFEDIPINE CR 30 MG TAB PO SCH (09:23)
[2020-02-04 13:23] VITALS: BP 132/57
[2020-02-04] MEDS ORDERED: ATORVASTATIN 40 MG TAB PO SCH (21:00)
== END 2020-02-04 13:42 | DRG 811 ==
LOC: ER 20:08 → ERHOLD 20:56 → MED/SURG2 23:52 → OBSVTOIN 01-31 09:54
PROVIDERS: ADMIT Internal Medicine; ATTEND Internal Medicine
PROC: 30233N1 Transfusion of Nonautologous Red Blood Cells into Peripheral Vein, Percutaneous Approach (ICD-10-PCS; principal; 2020-01-31)
DX: D53.1 Other megaloblastic anemias, not elsewhere classified (principal); I50.33 Acute on chronic diastolic (congestive) heart failure; R47.01 Aphasia; C94.6 Myelodysplastic disease, not elsewhere classified; I69.351 Hemiplegia and hemiparesis following cerebral infarction affecting right dominant side; C92.10 Chronic myeloid leukemia, BCR/ABL-positive, not having achieved remission; Q61.3 Polycystic kidney, unspecified; D64.9 Anemia, unspecified; R13.11 Dysphagia, oral phase; D45 Polycythemia vera; E03.9 Hypothyroidism, unspecified; G40.909 Epilepsy, unspecified, not intractable, without status epilepticus; E78.5 Hyperlipidemia, unspecified; I69.319 Unspecified symptoms and signs involving cognitive functions following cerebral infarction; I69.391 Dysphagia following cerebral infarction; F01.50 Vascular dementia, unspecified severity, without behavioral disturbance, psychotic disturbance, mood disturbance, and anxiety; Z90.49 Acquired absence of other specified parts of digestive tract; E88.09 Other disorders of plasma-protein metabolism, not elsewhere classified; E77.8 Other disorders of glycoprotein metabolism; Z20.828 Contact with and (suspected) exposure to other viral communicable diseases
CPT/HCPCS: 36415; 71045; 71260; 74177; 80048; 80053; 82550; 82553; 82607; 82728; 82746; 83540; 84443; 84466; 84484; 85025; 85045; 85610; 85730; 86850; 86900; 86920; 93005; 93306; 97139; 99251; 99284; G0378; J1650; J1940; J7050; P9016; Q9967; U0002